=== PATIENT | male | born 1945 | race Two or more races ===

== ENCOUNTER → 2017-02-26 | Outpatient (CLI) | payer MEDICARE, OTHER ==
[2017-02-26 20:14] LABS: URIC ACID 7.4 MG/DL (3.5-7.2)
[2017-02-26 20:19] LABS: MEAN CORPUSCULAR HEMOGLOBIN 31.1 pg (27.0-33.0); MEAN CORPUSCULAR HGB CONC 33.2 g/dl (32.0-36.5); MEAN CORPUSCULAR VOLUME 93.7 fl (80.0-96.0); RED CELL DISTRIBUTION WIDTH 14.2 % (11.5-14.5); WHITE BLOOD COUNT 5.4 K/mm3 (4.0-10.0)
[2017-02-26 20:42] LABS: ERYTHROCYTE SEDIMENTATION RATE 6 mm/hr (0-20)
[2017-02-26 20:59] LABS: BASOPHILS 1 % (0-4); EOSINOPHILS 19 % (0-5)
== END ==
LOC: M WUC 18:02
PROVIDERS: ATTEND Physician Assistant Surgical
DX: M21.611 Bunion of right foot (principal)

== ENCOUNTER 2017-08-22 09:05 | Day surgery (SDC) | payer MEDICARE, OTHER ==
[~2017-08-22 09:05] MED LIST: ACETAMINOPHEN 325 MG TAB PO; PHENYLEPHRINE HCL 10 % OPHTH. SOL 5ML XX; PROPARACAINE 0.5% OPHTH SOL 15ML OS
[2017-08-22] MEDS ORDERED: PHENYLEPHRINE 2.5% OPHTH SOL 2ML As Ordered (09:35)
[2017-08-22] MEDS ORDERED: OFLOXACIN 0.3 % (OCUFLOX) OPTH SOL 5ML As Ordered (09:35)
[2017-08-22] MEDS ORDERED: TROPICAMIDE 1% OPHTH SOLN 2ML As Ordered (09:35)
[2017-08-22] MEDS ORDERED: CYCLOPENTOLATE 2% OPHTH SOLN 2ML BTL As Ordered (09:35)
[2017-08-22] MEDS: PHENYLEPHRINE 2.5% OPHTH SOL 2ML OS (10:04)
[2017-08-22] MEDS: CYCLOPENTOLATE 2% OPHTH SOLN 2ML BTL OS (10:04)
[2017-08-22] MEDS: OFLOXACIN 0.3 % (OCUFLOX) OPTH SOL 5ML OS (10:04)
[2017-08-22] MEDS: LIDOCAINE 3.5 % 1ML OPHTH TOPICAL GEL OU (10:04)
[2017-08-22] MEDS: TROPICAMIDE 1% OPHTH SOLN 2ML OS (10:05)
[2017-08-22] MEDS ORDERED: fentaNYL 100 MCG/2 ML INJECTION (J3010) As Ordered (11:00)
[2017-08-22] MEDS ORDERED: MIDAZOLAM INJ 2 MG/2 ML VIAL (J2250) As Ordered (11:00)
[2017-08-22] MEDS: POVIDONE-IODINE 5% OPHTH PREP SOL 30ML As Ordered (11:05)
[2017-08-22] MEDS: CEFUROXIME 1MG/0.1ML INTRACAMERAL INJ As Ordered (11:05)
[2017-08-22] MEDS: ACETYLCHOLINE OPHTH SOLN 1% 2ML (MIOCHOL-E) As Ordered (11:05)
[2017-08-22] MEDS: LIDOCAINE 1% SDV 5 ML VIAL As Ordered (11:05)
[2017-08-22] MEDS: HEALON DUET (HEALON 10MG/ML 0.55ML & HEALON ENDOCOAT 30MG/ML 0.85ML) As Ordered (11:05)
[2017-08-22] MEDS ORDERED: AcetaZOLAMIDE 500 MG ER CAP As Ordered (11:35)
[2017-08-22] MEDS: KETOROLAC 0.5% OPHTH SOLN OS (11:45)
[2017-08-22] MEDS ORDERED: TRIMETHOBENZAMIDE 300 MG CAP PO (11:45)
[2017-08-22] MEDS ORDERED: ONDANSETRON 4MG/2ML VIAL (J2405) IV (11:45)
[2017-08-22] MEDS: AcetaZOLAMIDE 500 MG ER CAP PO (11:45)
== END 2017-08-22 12:03 | disposition home or self-care (01) ==
LOC: M SDC 09:05
DX: H25.12 Age-related nuclear cataract, left eye (principal); I25.10 Atherosclerotic heart disease of native coronary artery without angina pectoris; I10 Essential (primary) hypertension; E03.9 Hypothyroidism, unspecified; Z79.899 Other long term (current) drug therapy
CPT/HCPCS: 66984

== ENCOUNTER 2017-09-19 10:19 | Day surgery (SDC) | payer MEDICARE, OTHER ==
[2017-09-19] MEDS: CEFUROXIME 1MG/0.1ML INTRACAMERAL INJ As Ordered (07:05)
[~2017-09-19 10:19] MED LIST changes: +CYCLOPENTOLATE 2% OPHTH SOLN 2ML BTL OD; +LIDOCAINE 3.5 % 1ML OPHTH TOPICAL GEL OU; +MIDAZOLAM INJ 2 MG/2 ML VIAL (J2250) As Ordered; +OFLOXACIN 0.3 % (OCUFLOX) OPTH SOL 5ML OD; +PHENYLEPHRINE 2.5% OPHTH SOL 2ML OD; +PHENYLEPHRINE HCL 10 % OPHTH. SOL 5ML OD; -PHENYLEPHRINE HCL 10 % OPHTH. SOL 5ML XX; +PROPARACAINE 0.5% OPHTH SOL 15ML OD; -PROPARACAINE 0.5% OPHTH SOL 15ML OS; +TROPICAMIDE 1% OPHTH SOLN 2ML OD; +fentaNYL 100 MCG/2 ML INJECTION (J3010) As Ordered
[2017-09-19] MEDS ORDERED: CYCLOPENTOLATE 2% OPHTH SOLN 2ML BTL As Ordered (10:30)
[2017-09-19] MEDS ORDERED: TROPICAMIDE 1% OPHTH SOLN 2ML As Ordered (10:30)
[2017-09-19] MEDS ORDERED: OFLOXACIN 0.3 % (OCUFLOX) OPTH SOL 5ML As Ordered (10:30)
[2017-09-19] MEDS ORDERED: PHENYLEPHRINE 2.5% OPHTH SOL 2ML As Ordered (10:30)
[2017-09-19] MEDS: OFLOXACIN 0.3 % (OCUFLOX) OPTH SOL 5ML OD (10:59)
[2017-09-19] MEDS: LIDOCAINE 3.5 % 1ML OPHTH TOPICAL GEL OU (10:59)
[2017-09-19] MEDS: TROPICAMIDE 1% OPHTH SOLN 2ML OD (11:00)
[2017-09-19] MEDS: CYCLOPENTOLATE 2% OPHTH SOLN 2ML BTL OD (11:00)
[2017-09-19] MEDS: PHENYLEPHRINE 2.5% OPHTH SOL 2ML OD (11:00)
[2017-09-19] MEDS ORDERED: TRIMETHOBENZAMIDE 300 MG CAP PO (11:00)
[2017-09-19] MEDS: POVIDONE-IODINE 5% OPHTH PREP SOL 30ML As Ordered (11:44)
[2017-09-19] MEDS: BALANCED SALT IRRIGATION SOLUTION 500ML BAG (FOR OR EYE MACHINE) As Ordered (11:47)
[2017-09-19] MEDS: LIDOCAINE 1% SDV 5 ML VIAL As Ordered (11:47)
[2017-09-19] MEDS: HEALON DUET (HEALON 10MG/ML 0.55ML & HEALON ENDOCOAT 30MG/ML 0.85ML) As Ordered (11:52)
[2017-09-19] MEDS ORDERED: ONDANSETRON 4MG/2ML VIAL (J2405) IV (12:15)
[2017-09-19] MEDS: KETOROLAC 0.5% OPHTH SOLN OD (12:19)
[2017-09-19] MEDS: AcetaZOLAMIDE 500 MG ER CAP PO (12:25)
== END 2017-09-19 12:42 | disposition home or self-care (01) ==
LOC: M SDC 10:19
DX: H25.11 Age-related nuclear cataract, right eye (principal); I11.9 Hypertensive heart disease without heart failure; I25.10 Atherosclerotic heart disease of native coronary artery without angina pectoris; E03.9 Hypothyroidism, unspecified; M54.9 Dorsalgia, unspecified; Z79.899 Other long term (current) drug therapy; Z79.82 Long term (current) use of aspirin
CPT/HCPCS: 66984

== ENCOUNTER 2018-04-11 17:02 | Inpatient (IN) | payer MEDICARE, OTHER ==
[2018-04-11 14:57] LABS: BASO # 0.1 10^3/uL (0.0-0.2); EOS # 1.2 10^3/uL (0.0-0.50); EOS % 17.7 % (0.0-3.0); HEMATOCRIT 51.5 % (42.0-52.0); HEMOGLOBIN 16.6 g/dl (13.5-17.5); IMMATURE GRANULOCYTE % 0.1 % (0-3.0); LYMPH # 1.6 10^3/uL (1.5-4.5); LYMPH % 23.2 % (24.0-44.0); MEAN CORPUSCULAR HEMOGLOBIN 29.6 pg (27.0-33.0); MEAN CORPUSCULAR HGB CONC 32.2 g/dl (32.0-36.5); MEAN CORPUSCULAR VOLUME 91.8 fl (80.0-96.0); MONO # 0.6 10^3/uL (0.0-0.8); MONO % 8.8 % (0.0-5.0); NEUTROPHILS # 3.4 10^3/uL (1.8-7.7); NEUTROPHILS % 49.2 % (36.0-66.0); PLATELET COUNT, AUTOMATED 221 10^3/uL (150-450); RED BLOOD COUNT 5.61 10^6/uL (4.30-6.10); RED CELL DISTRIBUTION WIDTH 15.5 % (11.5-14.5); WHITE BLOOD COUNT 6.8 10^3/uL (4.0-10.0)
[2018-04-11 15:10] LABS: INR 0.99; PROTHROMBIN TIME 13.2 SECONDS (12.1-14.4)
[2018-04-11] MEDS: METOPROLOL TART 25 MG TABLET PO (15:12)
[2018-04-11] MEDS: METOPROLOL 5 MG/5 ML VIAL IV ×3 (15:13→15:35)
[2018-04-11] MEDS: NS 500 ML IV (15:31)
[2018-04-11 15:34] LABS: ALBUMIN 3.8 GM/DL (3.2-5.2); ALBUMIN/GLOBULIN RATIO 1.03 (1.00-1.93); ALKALINE PHOSPHATASE 65 U/L (45-117); ALT/SGPT 30 U/L (12-78); ANION GAP 8 MEQ/L (8-16); AST/SGOT 27 U/L (7-37); BILIRUBIN,DIRECT 0.2 MG/DL (0.0-0.2); BILIRUBIN,TOTAL 0.6 MG/DL (0.2-1.0); BLOOD UREA NITROGEN 18 MG/DL (7-18); CALCIUM LEVEL 9.4 MG/DL (8.8-10.2); CARBON DIOXIDE LEVEL 30 MEQ/L (21-32); CHLORIDE LEVEL 103 MEQ/L (98-107); CPK CREATINE PHOSPHOKINASE 147 U/L (39-308); CREATININE FOR GFR 0.96 MG/DL (0.70-1.30); GLOMERULAR FILTRATION RATE > 60.0 (>42); GLUCOSE, FASTING 100 MG/DL (70-100); LIPASE 101 U/L (73-393); MB/CK RELATIVE INDEX 2.11 (< OR =4); POTASSIUM SERUM 4.8 MEQ/L (3.5-5.1); SODIUM LEVEL 141 MEQ/L (136-145); THYROID STIMULATING HORMONE 0.705 uIU/ML (0.358-3.740); TOTAL PROTEIN 7.5 GM/DL (6.4-8.2); TROPONIN I < 0.02 NG/ML (< 0.10)
[2018-04-11] MEDS: AMIODARONE HCL 150 MG in APPROPRIATE DILUENT 1 EA IV ×2 (17:04→18:21)
[2018-04-11] MEDS: LATANOPROST 0.005% OPHTH SOLN 2.5 ML OS (21:00)
[2018-04-11] MEDS: ASPIRIN 81 MG ENTERIC TAB PO (21:00)
[2018-04-11] MEDS: OMEGA-3 1000MG CAPSULE PO (21:00)
[2018-04-11] MEDS ORDERED: ACETAMINOPH W/CODEINE #3 TAB UD PO (21:00)
[2018-04-11] MEDS ORDERED: PILL CRUSHER/CUTTER 1 EACH XX (21:15)
[2018-04-11] MEDS ORDERED: diltiaZEM 125 MG in NS 100 ML IV (22:00)
[2018-04-11 22:19] LABS: PHOSPHORUS LEVEL 3.2 MG/DL (2.5-4.9)
[2018-04-11] MEDS: diltiaZEM 125 MG in NS 100 ML IV (22:30)
[2018-04-11] MEDS: APIXABAN 5 MG TAB (ELIQUIS) PO (22:40)
[2018-04-12 00:43] LABS: CPK CREATINE PHOSPHOKINASE 81 U/L (39-308); MB/CK RELATIVE INDEX 2.72 (< OR =4); TROPONIN I < 0.02 NG/ML (< 0.10)
[2018-04-12] MEDS: DIGOXIN INJ 0.5 MG/2 ML AMP (J1160) IV (02:56)
[2018-04-12 05:01] LABS: HEMATOCRIT 47.5 % (42.0-52.0); HEMOGLOBIN 15.5 g/dl (13.5-17.5); MEAN CORPUSCULAR HEMOGLOBIN 29.6 pg (27.0-33.0); MEAN CORPUSCULAR HGB CONC 32.6 g/dl (32.0-36.5); MEAN CORPUSCULAR VOLUME 90.6 fl (80.0-96.0); PLATELET COUNT, AUTOMATED 213 10^3/uL (150-450); RED BLOOD COUNT 5.24 10^6/uL (4.30-6.10); RED CELL DISTRIBUTION WIDTH 15.5 % (11.5-14.5); WHITE BLOOD COUNT 7.8 10^3/uL (4.0-10.0)
[2018-04-12 05:29] LABS: ANION GAP 7 MEQ/L (8-16); BLOOD UREA NITROGEN 18 MG/DL (7-18); CALCIUM LEVEL 8.7 MG/DL (8.8-10.2); CARBON DIOXIDE LEVEL 29 MEQ/L (21-32); CHLORIDE LEVEL 106 MEQ/L (98-107); CPK CREATINE PHOSPHOKINASE 83 U/L (39-308); CREATININE FOR GFR 0.89 MG/DL (0.70-1.30); GLOMERULAR FILTRATION RATE > 60.0 (>42); GLUCOSE, FASTING 91 MG/DL (70-100); MAGNESIUM LEVEL 2.3 MG/DL (1.8-2.4); MB/CK RELATIVE INDEX 2.05 (< OR =4); POTASSIUM SERUM 3.9 MEQ/L (3.5-5.1); SODIUM LEVEL 142 MEQ/L (136-145); TROPONIN I < 0.02 NG/ML (< 0.10)
[2018-04-12] MEDS: LEVOTHYROXINE 112MCG TABLET (0.112MG) PO (05:53)
[2018-04-12] MEDS: diltiaZEM 125 MG in NS 100 ML IV (05:55)
[2018-04-12] MEDS: APIXABAN 5 MG TAB (ELIQUIS) PO ×2 (08:14→20:17)
[2018-04-12] MEDS: OMEGA-3 1000MG CAPSULE PO ×2 (08:14→20:17)
[2018-04-12] MEDS: VITAMIN D 1,000 INTERNATIONAL UNITS TABLET PO (08:14)
[2018-04-12] MEDS: ROSUVASTATIN 10 MG TAB (CRESTOR) PO (08:14)
[2018-04-12] MEDS: MULTIVITAMINS/MINERALS THERAP 1 TAB PO (08:14)
[2018-04-12] MEDS: TIMOLOL XE GFS 0.5% OPHTH 5 ML OU (08:15)
[2018-04-12] MEDS: CYANOCOBALAMIN 500 MCG TAB PO (08:15)
[2018-04-12] MEDS: amLODIPine 5 MG TAB PO (08:15)
[2018-04-12] MEDS ORDERED: LIDOCAINE 2% INJ 100 MG/5 ML SDV (FOR ANES.) As Ordered (11:56)
[2018-04-12] MEDS ORDERED: PROPOFOL 200 MG/20 ML VIAL As Ordered (11:56)
[2018-04-12] MEDS ORDERED: ePHEDrine SULFATE 25 MG/5 ML(5MG/ML) SYRINGE (14:17)
[2018-04-12] MEDS: LATANOPROST 0.005% OPHTH SOLN 2.5 ML OS (20:16)
[2018-04-12] MEDS: ASPIRIN 81 MG ENTERIC TAB PO (20:17)
[2018-04-13 05:24] LABS: HEMATOCRIT 44.1 % (42.0-52.0); HEMOGLOBIN 14.1 g/dl (13.5-17.5); MEAN CORPUSCULAR HEMOGLOBIN 29.3 pg (27.0-33.0); MEAN CORPUSCULAR VOLUME 91.5 fl (80.0-96.0); PLATELET COUNT, AUTOMATED 195 10^3/uL (150-450); RED BLOOD COUNT 4.82 10^6/uL (4.30-6.10); RED CELL DISTRIBUTION WIDTH 15.6 % (11.5-14.5); WHITE BLOOD COUNT 6.9 10^3/uL (4.0-10.0)
[2018-04-13] MEDS: LEVOTHYROXINE 112MCG TABLET (0.112MG) PO (05:39)
[2018-04-13 05:46] LABS: ANION GAP 8 MEQ/L (8-16); BLOOD UREA NITROGEN 21 MG/DL (7-18); CALCIUM LEVEL 8.3 MG/DL (8.8-10.2); CARBON DIOXIDE LEVEL 30 MEQ/L (21-32); CHLORIDE LEVEL 105 MEQ/L (98-107); CREATININE FOR GFR 1.14 MG/DL (0.70-1.30); GLOMERULAR FILTRATION RATE > 60.0 (>42); GLUCOSE, FASTING 89 MG/DL (70-100); MAGNESIUM LEVEL 2.1 MG/DL (1.8-2.4); POTASSIUM SERUM 3.6 MEQ/L (3.5-5.1); SODIUM LEVEL 143 MEQ/L (136-145)
[2018-04-13] MEDS: MULTIVITAMINS/MINERALS THERAP 1 TAB PO (08:36)
[2018-04-13] MEDS: CYANOCOBALAMIN 500 MCG TAB PO (08:36)
[2018-04-13] MEDS: APIXABAN 5 MG TAB (ELIQUIS) PO (08:37)
[2018-04-13] MEDS: ROSUVASTATIN 10 MG TAB (CRESTOR) PO (08:37)
[2018-04-13] MEDS: VITAMIN D 1,000 INTERNATIONAL UNITS TABLET PO (08:37)
[2018-04-13] MEDS: OMEGA-3 1000MG CAPSULE PO (08:37)
[2018-04-13] MEDS: amLODIPine 5 MG TAB PO (08:43)
[2018-04-13] MEDS: TIMOLOL XE GFS 0.5% OPHTH 5 ML OU (08:43)
== END 2018-04-13 14:24 | disposition home or self-care (01) | DRG 310 ==
LOC: M ICU 04-12 01:58 → M ED 17:02 → M PCU 04-12 22:27 → M ED INP 23:39
PROC: 5A2204Z Restoration of Cardiac Rhythm, Single (ICD-10-PCS; principal; 2018-04-12 08:02)
DX: I48.0 Paroxysmal atrial fibrillation (principal); I48.92 Unspecified atrial flutter; I25.10 Atherosclerotic heart disease of native coronary artery without angina pectoris; E03.9 Hypothyroidism, unspecified; E78.5 Hyperlipidemia, unspecified; I34.0 Nonrheumatic mitral (valve) insufficiency; I10 Essential (primary) hypertension; Z95.1 Presence of aortocoronary bypass graft; Z79.899 Other long term (current) drug therapy; Z79.82 Long term (current) use of aspirin; Z87.891 Personal history of nicotine dependence; Z88.8 Allergy status to other drugs, medicaments and biological substances; R91.1 Solitary pulmonary nodule; H40.9 Unspecified glaucoma

== ENCOUNTER 2018-06-01 21:38 | Observation (INO) | payer MEDICARE, OTHER ==
[2018-06-01] MEDS ORDERED: METOPROLOL 5 MG/5 ML VIAL As Ordered (22:10)
[2018-06-01] MEDS ORDERED: AMIODARONE HCL 150 MG/100 ML PREMIXED BAG (NEXTERONE) As Ordered (22:10)
[2018-06-01] MEDS: METOPROLOL 5 MG/5 ML VIAL IV ×4 (22:14→22:30)
[2018-06-01 22:15] LABS: BASO # 0.1 10^3/uL (0.0-0.2); BASO % 0.6 % (0.0-1.0); EOS # 1.2 10^3/uL (0.0-0.50); EOS % 15.6 % (0.0-3.0); HEMATOCRIT 49.5 % (42.0-52.0); IMMATURE GRANULOCYTE % 0.1 % (0-3.0); LYMPH # 1.8 10^3/uL (1.5-4.5); LYMPH % 22.2 % (24.0-44.0); MEAN CORPUSCULAR HGB CONC 32.3 g/dl (32.0-36.5); MEAN CORPUSCULAR VOLUME 92.9 fl (80.0-96.0); MONO # 0.8 10^3/uL (0.0-0.8); MONO % 9.6 % (0.0-5.0); NEUTROPHILS # 4.1 10^3/uL (1.8-7.7); NEUTROPHILS % 51.9 % (36.0-66.0); PLATELET COUNT, AUTOMATED 202 10^3/uL (150-450); RED BLOOD COUNT 5.33 10^6/uL (4.30-6.10); RED CELL DISTRIBUTION WIDTH 15.2 % (11.5-14.5); WHITE BLOOD COUNT 7.9 10^3/uL (4.0-10.0)
[2018-06-01] MEDS: AMIODARONE HCL 150 MG in APPROPRIATE DILUENT 1 EA IV ×2 (22:38→23:58)
[2018-06-01 23:09] LABS: INR 1.14; PROTHROMBIN TIME 14.8 SECONDS (12.1-14.4)
[2018-06-01 23:10] LABS: PARTIAL THROMBOPLASTIN TIME 34.9 SECONDS (25.4-37.6)
[2018-06-01] MEDS: METOPROLOL TART 25 MG TABLET PO (23:11)
[2018-06-01 23:32] LABS: ANION GAP 7 MEQ/L (8-16); BLOOD UREA NITROGEN 29 MG/DL (7-18); CALCIUM LEVEL 9.1 MG/DL (8.8-10.2); CARBON DIOXIDE LEVEL 27 MEQ/L (21-32); CHLORIDE LEVEL 104 MEQ/L (98-107); CPK CREATINE PHOSPHOKINASE 187 U/L (39-308); CREATININE FOR GFR 0.99 MG/DL (0.70-1.30); ETHYL ALCOHOL (ETHANOL) < 0.003 % (0.000-0.010); GLOMERULAR FILTRATION RATE > 60.0 (>42); GLUCOSE, FASTING 109 MG/DL (70-100); MB/CK RELATIVE INDEX 1.44 (< OR =4); SODIUM LEVEL 138 MEQ/L (136-145); THYROID STIMULATING HORMONE 0.377 uIU/ML (0.358-3.740); TROPONIN I < 0.02 NG/ML (< 0.10)
[2018-06-02] MEDS ORDERED: LORazepam 2 MG TAB PO (01:30)
[2018-06-02 01:34] LABS: D-DIMER QUANT 731.35 ng/ml (<500)
[2018-06-02] MEDS: ASPIRIN 81 MG CHEW TABLET PO (01:40)
[2018-06-02] MEDS ORDERED: ISOVUE-370 76% 100ML VIAL (Q9967) As Ordered (02:13)
[2018-06-02 02:25] LABS: CPK CREATINE PHOSPHOKINASE 92 U/L (39-308); MB/CK RELATIVE INDEX 2.39 (< OR =4); TROPONIN I < 0.02 NG/ML (< 0.10)
[2018-06-02] MEDS ORDERED: LORazepam 1 MG TAB PO (03:03)
[2018-06-02] MEDS: NS 1,000 ML IV (03:15)
[2018-06-02 05:00] LABS: HEMATOCRIT 42.6 % (42.0-52.0); MEAN CORPUSCULAR HEMOGLOBIN 29.8 pg (27.0-33.0); MEAN CORPUSCULAR HGB CONC 32.4 g/dl (32.0-36.5); PLATELET COUNT, AUTOMATED 173 10^3/uL (150-450); RED BLOOD COUNT 4.63 10^6/uL (4.30-6.10); RED CELL DISTRIBUTION WIDTH 15.4 % (11.5-14.5); WHITE BLOOD COUNT 6.4 10^3/uL (4.0-10.0)
[2018-06-02 05:11] LABS: ANION GAP 5 MEQ/L (8-16); BLOOD UREA NITROGEN 26 MG/DL (7-18); CALCIUM LEVEL 8.3 MG/DL (8.8-10.2); CARBON DIOXIDE LEVEL 30 MEQ/L (21-32); CHLORIDE LEVEL 106 MEQ/L (98-107); CREATININE FOR GFR 1.01 MG/DL (0.70-1.30); GLOMERULAR FILTRATION RATE > 60.0 (>42); GLUCOSE, FASTING 94 MG/DL (70-100); MAGNESIUM LEVEL 2.3 MG/DL (1.8-2.4); SODIUM LEVEL 141 MEQ/L (136-145)
[2018-06-02 05:14] LABS: HEMOGLOBIN 13.8 g/dl (13.5-17.5)
[2018-06-02] MEDS: THIAMINE 100 MG TAB PO (05:32)
[2018-06-02] MEDS: LEVOTHYROXINE 125MCG TABLET (0.125MG) PO (05:32)
[2018-06-02] MEDS: TIMOLOL XE GFS 0.5% OPHTH 5 ML OU (05:32)
[2018-06-02] MEDS: ROSUVASTATIN 10 MG TAB (CRESTOR) PO (08:51)
[2018-06-02] MEDS: APIXABAN 5 MG TAB (ELIQUIS) PO (08:51)
[2018-06-02] MEDS: AMIODARONE 200 MG TAB (PACERONE) PO (08:51)
[2018-06-02] MEDS ORDERED: MULTIVITAMINS/MINERALS THERAP 1 TAB PO (09:00)
[2018-06-02] MEDS ORDERED: TIMOLOL XE GFS 0.5% OPHTH 5 ML OU (09:00)
[2018-06-02] MEDS ORDERED: FOLIC ACID 1 MG TAB PO (09:00)
[2018-06-02 10:07] LABS: CPK CREATINE PHOSPHOKINASE 67 U/L (39-308); MB/CK RELATIVE INDEX 2.54 (< OR =4); TROPONIN I < 0.02 NG/ML (< 0.10)
[2018-06-02] MEDS ORDERED: LATANOPROST 0.005% OPHTH SOLN 2.5 ML OS (18:00)
== END 2018-06-02 12:19 | disposition home or self-care (01) ==
LOC: M ED INP 21:39 → M ICU 06-02 03:00 → M ED 21:38
DX: I48.0 Paroxysmal atrial fibrillation (principal); I25.10 Atherosclerotic heart disease of native coronary artery without angina pectoris; Z95.1 Presence of aortocoronary bypass graft; E03.9 Hypothyroidism, unspecified; I34.0 Nonrheumatic mitral (valve) insufficiency; I10 Essential (primary) hypertension; E78.5 Hyperlipidemia, unspecified; Z79.899 Other long term (current) drug therapy; Z79.01 Long term (current) use of anticoagulants
CPT/HCPCS: Q9967

== ENCOUNTER → 2018-07-18 | Outpatient (CLI) | payer MEDICARE, OTHER ==
[~2018-07-18] MED LIST changes: +ACET1TAB16 PO; -ACETAMINOPHEN 325 MG TAB PO; +AMIO200T PO; +AMLO5TAB6 PO; +ASPI81TA85 PO; +CALC500T24 PO; +CO Q10CA PO; -CYCLOPENTOLATE 2% OPHTH SOLN 2ML BTL OD; +D 101TAB PO; +D 10TAB2 PO; +ELIQ5TAB PO; +FISH1CAP37 PO; +FLAX10008 PO; +LATA5OPD OS; +LECI1200 PO; -LIDOCAINE 3.5 % 1ML OPHTH TOPICAL GEL OU; -MIDAZOLAM INJ 2 MG/2 ML VIAL (J2250) As Ordered; +MULTTAB22 PO; -OFLOXACIN 0.3 % (OCUFLOX) OPTH SOL 5ML OD; -PHENYLEPHRINE 2.5% OPHTH SOL 2ML OD; -PHENYLEPHRINE HCL 10 % OPHTH. SOL 5ML OD; -PROPARACAINE 0.5% OPHTH SOL 15ML OD; +ROSU5TAB4 PO; +SYNT112T2 PO; +SYNT125T PO; +TIMO0.5S3 OU; +TIMO0.5S39 OU; -TROPICAMIDE 1% OPHTH SOLN 2ML OD; +VITA100072 PO; +XALA0.007 OS; +[UNRECOGNIZED DRUG - CODE] PO; -fentaNYL 100 MCG/2 ML INJECTION (J3010) As Ordered
--- NOTE | 2018-07-18 12:35 | REP ---
CT chest without contrast: History: Abnormal lung field findings. Comparison chest CT study June 05, 2018 and April 11, 2018. 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 There is a large new rounded opacity in the left lower lobe consistent with rounded atelectasis. This is unchanged from the April 11, 2018 study and measures up to 4.3 cm in diameter. There is adjacent fibrosis and retraction. There are scattered areas of pleural thickening in the left chest also again noted. No pleural calcification is seen. There is a smaller area of rounded atelectasis in the lingula versus pleural thickening with adjacent fibrosis. This is also unchanged from April 11, 2018. There is a stable 5 mm nodule in the right lower lobe posteriorly on today's study page 63 of 117 series 201. This is unchanged from April 2018. There is a nodular opacity anteriorly in the minor fissure on the right but this is seen to be due to a pulmonary venous vessel coursing adjacent to the fissure. No other significant pulmonary nodule is appreciated. No bony abnormality is seen. There are old healed rib fractures bilaterally. Scattered mediastinal lymph nodes are again seen unchanged. The largest of these is in the AP window region measuring 12 x 18 mm. Impression: Large area of rounded atelectasis in the left lower lobe, possible smaller area in the left upper lobe and nodular opacities all unchanged from April 11, 2018 prior study. Continued followup is advised. Stable mediastinal scattered lymph nodes. Electronically Signed by Magdiel Pearce MD 07/18/2018 04:23 P
== END ==
LOC: M RAD 10:53
PROVIDERS: ATTEND Internal Medicine Pulmonary Disease
DX: J98.11 Atelectasis (principal); R91.8 Other nonspecific abnormal finding of lung field

== ENCOUNTER → 2018-08-27 | Outpatient (REF) | payer MEDICARE, OTHER ==
[2018-08-27 20:07] LABS: APPEARANCE, URINE CLEAR (CLEAR); BACTERIA, URINE AUTO NEGATIVE (NEGATIVE); BILIRUBIN, URINE AUTO NEGATIVE (NEGATIVE); BLOOD, URINE BLOOD NEGATIVE (NEGATIVE); COLOR, URINE YELLOW (YELLOW); GLUCOSE, URINE (UA) AUTO NEGATIVE (NEGATIVE); KETONE, URINE AUTO NEGATIVE (NEGATIVE); LEUKOCYTE ESTERASE, URINE AUTO NEGATIVE (NEGATIVE); MUCUS, URINE SMALL (NEGATIVE); NITRITE, URINE AUTO NEGATIVE (NEGATIVE); PROTEIN, URINE AUTO NEGATIVE (NEGATIVE); RBC, URINE AUTO 0 /HPF (0-3); SPECIFIC GRAVITY URINE AUTO 1.017 (1.002-1.035); SQUAMOUS EPITHELIAL CELL UR AU 0 /HPF (0-6); UROBILINOGEN, URINE AUTO 0.2 mg/dL (0.0-2.0); WBC, URINE AUTO 3 /HPF (0-3)
== END ==
LOC: M LAB REF 17:26
PROVIDERS: ATTEND Nurse Practitioner Adult Health
DX: R35.0 Frequency of micturition (principal)

== ENCOUNTER 2018-11-27 11:21 | Emergency (ER) | payer MEDICARE, OTHER ==
[~2018-11-27] VITALS: Ht 177.8 cm; Wt 71.8 kg
[~2018-11-27 11:21] MED LIST changes: -D 101TAB PO; +LATA0.0013 OS; -LATA5OPD OS; +VITA-144 PO; +VITA100018 PO; -VITA100072 PO
[2018-11-27] MEDS ORDERED: AMIO0.1T PO (11:32)
[2018-11-27] MEDS ORDERED: LIDOCAINE 2% 5ML JELLY UROJET TOP ONE (12:15)
[2018-11-27] MEDS ORDERED: BACT800T5 PO (13:28)
[2018-11-27] MEDS ORDERED: FLOM0.4C39 PO (13:28)
[2018-11-27 14:18] VITALS: BP 128/67
== END 2018-11-27 14:19 | disposition home or self-care (01) ==
LOC: M ED 11:21
DX: R33.0 Drug induced retention of urine (principal); N39.0 Urinary tract infection, site not specified; I10 Essential (primary) hypertension; I48.91 Unspecified atrial fibrillation; E03.9 Hypothyroidism, unspecified; E78.5 Hyperlipidemia, unspecified; Z88.8 Allergy status to other drugs, medicaments and biological substances; Z79.01 Long term (current) use of anticoagulants

== ENCOUNTER → 2018-12-20 | Outpatient (REF) | payer MEDICARE, OTHER ==
[~2018-12-20] MED LIST changes: +AMIO0.1T PO; +BACT800T5 PO; +FLOM0.4C39 PO
[2018-12-20 14:03] LABS: APPEARANCE, URINE HAZY (CLEAR); BACTERIA, URINE AUTO NEGATIVE (NEGATIVE); BILIRUBIN, URINE AUTO NEGATIVE (NEGATIVE); BLOOD, URINE BLOOD NEGATIVE (NEGATIVE); COLOR, URINE YELLOW (YELLOW); GLUCOSE, URINE (UA) AUTO NEGATIVE (NEGATIVE); KETONE, URINE AUTO TRACE mg/dL (NEGATIVE); LEUKOCYTE ESTERASE, URINE AUTO NEGATIVE (NEGATIVE); NITRITE, URINE AUTO NEGATIVE (NEGATIVE); PROTEIN, URINE AUTO NEGATIVE (NEGATIVE); RBC, URINE AUTO 2 /HPF (0-3); SPECIFIC GRAVITY URINE AUTO 1.018 (1.002-1.035); SQUAMOUS EPITHELIAL CELL UR AU 0 /HPF (0-6); UROBILINOGEN, URINE AUTO 0.2 mg/dL (0.0-2.0); WBC, URINE AUTO 0 /HPF (0-3)
== END ==
LOC: M SMT 12:50
PROVIDERS: ATTEND Nurse Practitioner Family
DX: R31.29 Other microscopic hematuria (principal)
CPT/HCPCS: 51798; 81001; 87086; G0463

== ENCOUNTER → 2019-01-14 | Outpatient (CLI) | payer MEDICARE, OTHER ==
[~2019-01-14] MED LIST changes: -ROSU5TAB4 PO; +ROSU5TAB5 PO
--- NOTE | 2019-01-14 18:55 | REP ---
CT chest without contrast: History: Abnormal finding in the lung pan. [place] chest CT studies are reviewed from April 11, 2018, June 02, 2018, and July 18, 2018. CT findings: There is a fairly large stable opacity in the left lower lobe posteriorly with morphologic features suggestive of spiral or rounded atelectasis. This measures 4.4 cm in greatest transverse dimension today, previously 4.7 cm in May of 2018 and 4.3 cm in July of 2018. There is a similar smaller area of rounded atelectasis in the lingular segment of the left upper lobe anterolaterally. This is unchanged as well. There is a stable 5 mm noncalcified pulmonary nodule in the right lower lobe on page 64 of 120 in series 201 of today's study. This is unchanged from June 02, 2018. No new pulmonary nodule is appreciated. Median sternotomy wires are noted. The patient has vascular calcification. Scattered stable mediastinal lymph nodes are observed. These are unchanged from the April 27, 2018 prior study. No other abnormalities seen. Visualized upper abdominal structures are unremarkable. There is evidence of a calcified gallstone, unchanged. Impression: Stable intrathoracic findings. Stability documented since April 11, 2018. Electronically Signed by Magdiel Pearce MD 01/14/2019 07:31 P
== END ==
LOC: M RAD 12:54
PROVIDERS: ATTEND Internal Medicine Pulmonary Disease
DX: R91.8 Other nonspecific abnormal finding of lung field (principal)

== ENCOUNTER 2019-02-07 06:26 | Emergency (ER) | payer MEDICARE, OTHER ==
[~2019-02-07] VITALS: Ht 180.3 cm; Wt 70.0 kg
[2019-02-07 06:49] LABS: BASO # 0.1 10^3/uL (0.0-0.2); BASO % 1.3 % (0.0-1.0); EOS % 16.7 % (0.0-3.0); HEMATOCRIT 48.7 % (42.0-52.0); HEMOGLOBIN 15.9 g/dl (13.5-17.5); LYMPH # 1.8 10^3/uL (1.5-4.5); LYMPH % 28.1 % (24.0-44.0); MEAN CORPUSCULAR HEMOGLOBIN 30.5 pg (27.0-33.0); MEAN CORPUSCULAR HGB CONC 32.6 g/dl (32.0-36.5); MEAN CORPUSCULAR VOLUME 93.5 fl (80.0-96.0); MONO # 0.7 10^3/uL (0.0-0.8); MONO % 11.1 % (0.0-5.0); NEUTROPHILS # 2.7 10^3/uL (1.8-7.7); NEUTROPHILS % 42.5 % (36.0-66.0); PLATELET COUNT, AUTOMATED 214 10^3/uL (150-450); RED BLOOD COUNT 5.21 10^6/uL (4.30-6.10); WHITE BLOOD COUNT 6.2 10^3/uL (4.0-10.0)
[2019-02-07 07:20] LABS: BLOOD UREA NITROGEN 16 MG/DL (7-18); CALCIUM LEVEL 9.2 MG/DL (8.8-10.2); CARBON DIOXIDE LEVEL 27 MEQ/L (21-32); CHLORIDE LEVEL 105 MEQ/L (98-107); CPK CREATINE PHOSPHOKINASE 112 U/L (39-308); CREATININE FOR GFR 0.96 MG/DL (0.70-1.30); GLOMERULAR FILTRATION RATE > 60.0 (>42); GLUCOSE, FASTING 93 MG/DL (70-100); MAGNESIUM LEVEL 2.6 MG/DL (1.8-2.4); MB/CK RELATIVE INDEX 1.79 (< OR =4); SODIUM LEVEL 141 MEQ/L (136-145); TROPONIN I < 0.02 NG/ML (< 0.10)
[2019-02-07] MEDS ORDERED: AMIODARONE HCL 150 MG in APPROPRIATE DILUENT 1 EA IV STA (07:43)
--- NOTE | 2019-02-07 08:01 | REP ---
Clinical: Acute chest pain . Comparison: 06/01/2018 . Findings: The mediastinum and cardiac silhouette are stable and within normal limits for portable technique. Evidence of prior sternotomy and CABG. The lung pan are clear without acute consolidation, effusion, or pneumothorax. Skeletal structures are intact. Impression: No acute cardiopulmonary process appreciated. Electronically Signed by Dougie Spear MD 02/07/2019 07:53 A
[2019-02-07 08:05] LABS: T UPTAKE 41 % (33-40); THYROXINE (T4) 12.3 UG/DL (4.5-12.0)
[2019-02-07 09:15] VITALS: BP 135/81
--- NOTE | 2019-02-07 22:24 | ECGEPIP ---
[facility] - ED Test Date: 2019-02-07 Pat Name: MATT RUSHING Department: Room: - Gender: Male Senior Officer: KCJ : 1945 Requested By: PASCUAL Joshi Order Number: [id number] Reading MD: Niranjan Vick Measurements Intervals [place] Rate: 123 P: [place]: 0 QRS: 16 QRSD: 105 T: 64 QT: 310 QTc: 444 Interpretive Statements SINUS TACHYCARDIA WITH OCCASIONAL SUPRAVENTRICULAR PREMATURE COMPLEXES LVH BY VOLTAGE CRITERIA NONSPECIFIC ST & T-WAVE ABNORMALITY RATE CHANGE COMPARED TO 06/02/18 Electronically Signed on 02-07-2019 22:24:23 EDT by Niranjan Vick
--- NOTE | 2019-02-07 22:26 | ECGEPIP ---
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
== END 2019-02-07 09:41 | disposition home or self-care (01) ==
LOC: M ED 06:26
DX: I48.91 Unspecified atrial fibrillation (principal); I10 Essential (primary) hypertension; E78.5 Hyperlipidemia, unspecified; Z87.891 Personal history of nicotine dependence; Z98.890 Other specified postprocedural states; Z95.1 Presence of aortocoronary bypass graft; Z88.8 Allergy status to other drugs, medicaments and biological substances; Z79.899 Other long term (current) drug therapy; Z79.01 Long term (current) use of anticoagulants

== ENCOUNTER 2019-02-09 12:14 | Inpatient (IN) | payer MEDICARE, OTHER ==
[~2019-02-09] VITALS: Ht 177.8 cm; Wt 72.1 kg
[2019-02-09] MEDS ORDERED: AMIODARONE HCL 150 MG in APPROPRIATE DILUENT 1 EA IV STA ×2 (12:38→14:02)
[2019-02-09 12:39] LABS: BASO # 0.1 10^3/uL (0.0-0.2); BASO % 1.4 % (0.0-1.0); EOS % 17.2 % (0.0-3.0); HEMATOCRIT 50.3 % (42.0-52.0); HEMOGLOBIN 16.4 g/dl (13.5-17.5); LYMPH # 1.5 10^3/uL (1.5-4.5); LYMPH % 26.4 % (24.0-44.0); MEAN CORPUSCULAR HEMOGLOBIN 30.9 pg (27.0-33.0); MEAN CORPUSCULAR HGB CONC 32.6 g/dl (32.0-36.5); MEAN CORPUSCULAR VOLUME 94.9 fl (80.0-96.0); MONO # 0.6 10^3/uL (0.0-0.8); MONO % 10.4 % (0.0-5.0); NEUTROPHILS # 2.5 10^3/uL (1.8-7.7); NEUTROPHILS % 44.3 % (36.0-66.0); PLATELET COUNT, AUTOMATED 229 10^3/uL (150-450); WHITE BLOOD COUNT 5.8 10^3/uL (4.0-10.0)
--- NOTE | 2019-02-09 12:51 | REP ---
Clinical: Acute chest pain . Comparison: 02/07/2019 . Findings: The mediastinum and cardiac silhouette are stable. Evidence of prior sternotomy and CABG again noted. The lung pan demonstrate chronic stable changes without acute consolidation, effusion, or pneumothorax. Skeletal structures are intact. Impression: No acute cardiopulmonary process appreciated. Electronically Signed by Dougie Spear MD 02/09/2019 12:41 P
[2019-02-09 13:13] LABS: INR 1.23; PROTHROMBIN TIME 15.2 SECONDS (11.8-14.0)
[2019-02-09 13:14] LABS: PARTIAL THROMBOPLASTIN TIME 40.1 SECONDS (25.0-38.4)
[2019-02-09 13:16] LABS: D-DIMER QUANT 1155.88 ng/ml (<500)
[2019-02-09 13:51] LABS: ALBUMIN 3.5 GM/DL (3.2-5.2); ALT/SGPT 24 U/L (12-78); BILIRUBIN,DIRECT 0.2 MG/DL (0.0-0.2); BILIRUBIN,TOTAL 0.5 MG/DL (0.2-1.0); BLOOD UREA NITROGEN 14 MG/DL (7-18); CARBON DIOXIDE LEVEL 29 MEQ/L (21-32); CHLORIDE LEVEL 105 MEQ/L (98-107); CK-MB VALUE MASS 1.9 NG/ML (<3.6); CPK CREATINE PHOSPHOKINASE 86 U/L (39-308); FREE T4 1.54 NG/DL (0.76-1.46); GLOMERULAR FILTRATION RATE > 60.0 (>42); GLUCOSE, FASTING 137 MG/DL (70-100); MAGNESIUM LEVEL 2.4 MG/DL (1.8-2.4); MB/CK RELATIVE INDEX 2.21 (< OR =4); PHOSPHORUS LEVEL 2.9 MG/DL (2.5-4.9); POTASSIUM SERUM 3.8 MEQ/L (3.5-5.1); SODIUM LEVEL 142 MEQ/L (136-145); TOTAL PROTEIN 6.6 GM/DL (6.4-8.2); TROPONIN I < 0.02 NG/ML (< 0.10)
[2019-02-09] MEDS ORDERED: DIGOXIN INJ 0.5 MG/2 ML AMP (J1160) IV STA ×2 (14:02→18:11)
[2019-02-09] MEDS ORDERED: ISOVUE-370 76% 100ML VIAL (Q9967) As Ordered ONE (14:57)
--- NOTE | 2019-02-09 15:43 | ECGEPIP ---
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
--- NOTE | 2019-02-09 15:45 | ECGEPIP ---
[facility] - ED Test Date: 2019-02-09 Pat Name: MATT RUSHING Department: Room: - Gender: Male Manager Diversity: karine : 1945 Requested By: BEATRIZ Morgan Order Number: [id number] Reading MD: Estefania Kim Measurements Intervals [place] Rate: 62 P: 88 MD: 180 QRS: 7 QRSD: 101 T: 73 QT: 398 QTc: 407 Interpretive Statements SINUS RHYTHM MODERATE ST DEPRESSION ST ELEVATION INFERIOR LEADS SEEN PRIOR NSR IMMEDIATELY PRIOR EKG ATRIAL FIBRILLATION Electronically Signed on 02-09-2019 15:45:02 EDT by Estefania Kim
--- NOTE | 2019-02-09 16:19 | REP ---
Clinical: Acute chest pain and shortness of breath. Technique: Axial contrast enhanced images from the thoracic inlet to the upper abdomen with coronal and sagittal re-formations using 100 ml Isovue 370 intravenous contrast material. Comparison: 01/14/2019, 04/11/2018 . Findings: Maximal enhancement of the pulmonary vasculature is achieved and no filling defects are identified to suggest pulmonary embolus. Atherosclerotic changes to the thoracic aorta and coronary arteries noted without aortic aneurysm or dissection. Mild cardiomegaly is suggested without pericardial effusion. Evidence for prior sternotomy and CABG. Lung pan demonstrate chronic rounded atelectasis in the left lower lobe along with trace scarring at the lingula and minimal right basilar atelectasis/dependent change. No significant focal consolidation. No effusion. No pneumothorax. Tracheobronchial tree is relatively patent. Mediastinal lymph nodes are stable and likely reactive measuring up to 1.9 cm in the prevascular space. Musculoskeletal structures demonstrate degenerative changes without focal osseous abnormality. Impression: 1. No evidence for pulmonary embolus. 2. Chronic rounded atelectasis in the left lower lobe along with minimal chronic changes at the lingula and right base. Minimal amount of right lower lobe dependent change/atelectasis. 3. Chronic atherosclerotic disease along with cardiomegaly and evidence of prior CABG. Electronically Signed by Dougie Spear MD 02/09/2019 04:09 P
[2019-02-09] MEDS ORDERED: AMIODARONE 200 MG TAB (PACERONE) PO ONE (18:15)
--- NOTE | 2019-02-09 18:17 | ECGEPIP ---
[facility] - ED Test Date: 2019-02-09 Pat Name: MATT RUSHING Department: Room: - Gender: Male Manager [place]: karine : 1945 Requested By: BEATRIZ Morgan Order Number: [id number] Reading MD: Estefania Kim Measurements Intervals [place] Rate: 135 P: [place]: 0 QRS: 19 QRSD: 100 T: 71 QT: 300 QTc: 450 Interpretive Statements ATRIAL FIBRILLATION WITH RAPID VENTRICULAR RESPONSE NONSPECIFIC ST & T-WAVE ABNORMALITY ABNORMAL RHYTHM ECG PRIOR SINUS RHYTHM 02/09/19 14:42 Electronically Signed on 02-09-2019 18:17:23 EDT by Estefania Kim
[2019-02-09 18:53] LABS: CK-MB VALUE MASS 1.7 NG/ML (<3.6); CPK CREATINE PHOSPHOKINASE 76 U/L (39-308); MB/CK RELATIVE INDEX 2.24 (< OR =4); TROPONIN I < 0.02 NG/ML (< 0.10)
[2019-02-09] MEDS ORDERED: CETI-14 PO (20:14)
[2019-02-09] MEDS ORDERED: CALCTAB15 PO (20:14)
[2019-02-09] MEDS ORDERED: OMEG10002 PO (20:14)
[2019-02-09] MEDS ORDERED: LECI1CAP2 PO (20:14)
[2019-02-09] MEDS ORDERED: FLOM0.4C39 PO (20:14)
[2019-02-09] MEDS ORDERED: MAALOX 30 ML SUSP *UDC PO PRN (21:00)
--- NOTE | 2019-02-09 21:25 | HPEPDOC ---
General Date of Admission 02/09/19 Date of Service: Feb 09, 2019 Chief Complaint The patient is a 73-year-old male admitted with a reason for visit of AFIB. Source: Patient, Family, RN/MD, Old records Exam Limitations: No limitations Severity: Severe Associated Symptoms: Cough, Dizziness, Other (palpitation) History of Present Illness 73 year old male with PMH of paroxysmal atrial fibrillation because of pa lpitation which started at 11 am today. He had been in the ED for the same complaint and was in Afib with RVR at that vist he converted to sinus after management in ED so went home. Yesterday he had any episode of dizziness and today around 11 am his palpitation restarted with light headed ness of and on. He has been battling with a bad cough for the past 2 weeks. He was diagnosed with bronchitis in the middle of January and received a course of amoxicillin and prednisone. his cough is better but still there. It is dry with no phlegm production and comes in bouts. He dinied any fever or chills or any SOB or chest pain. In ED he was again in Afib with RVR. he was not given betablocker as he had a bad reaction to it before when his heart rate had really dangerously bradyed down. He was given 2 doses of amiodarone 150 mg, 2 doses of digoxin 0.25 mg. He had briefly converted to sinus but then went back to afib again and continued to be in A fib with RVR with rates i 140s to 160s so he is being admitted to the hospital. The management was discussed with Dr Freeman by Dr Hatfield in ED . I will continue to follow his advice of amiodarone and further digoxin loading. Home Medications Scheduled Amiodarone HCl (Amiodarone HCl) 100 Mg Tablet, 100 TAB PO DAILY, (Reported) Amlodipine Besylate (Amlodipine Besylate) 5 Mg Tab, 5 MG PO DAILY, (Reported) Apixaban (Eliquis) 5 Mg Tab, 5 MG PO BID, (Reported) Calcium/Magnesium (Calcium with Magnesium Tab) 1 Each Tablet, 1 EACH PO DAILY, (Reported) Cetirizine HCl (Cetirizine HCl) 10 Mg Tablet, 10 MG PO QAM, (Reported) Cholecalciferol (Vitamin D3) (Vitamin D3) 1,000 Unit Tab, 1,000 UNIT PO DAILY, (Reported) Cyanocobalamin (Vitamin B-12) (Vitamin B-12) 1,000 Mcg Tab, 1,000 MCG PO DAILY, (Reported) Flaxseed Oil (Flaxseed Oil) 1,000 Mg Cap, 1,000 MG PO DAILY, (Reported) Latanoprost (Xalatan) 0.005 % Margarita, 1 DROP OS QHS, (Reported) Lecithin, Soy (Lecithin) 1,200 Mg Capsule, 1,200 MG PO BID, (Reported) Levothyroxine Sodium (Synthroid) 125 Mcg Tab, 125 MCG PO QAM, (Reported) Multivit-Min/FA/Lycopen/Lutein (Essential Man Tablet) 1 Tab Tab, 1 TAB PO DAILY, (Reported) [place]-3/Dha/Epa/Fish Oil (Fish Oil 1,000 mg Softgel) 1 Each Capsule, 1,000 MG PO DAILY, (Reported) Rosuvastatin Calcium (Rosuvastatin Calcium) 5 Mg Tab, 5 MG PO QPM, (Reported) Tamsulosin HCl (Flomax) 0.4 Mg Capsule, 0.4 MG PO DAILY, (Reported) Timolol Maleate (Timoptic-Xe) 0.5 % Margarita, 1 DROP OU DAILY, (Reported) Ubidecarenone (Co Q-10) 10 Mg Cap, 10 MG PO DAILY, (Reported) Scheduled PRN Acetaminophen with Codeine (Acetaminophen-Cod #3 Tablet) 1 Tab Tab, 0.5 TAB PO BID PRN for PAIN, (Reported) Allergies Coded Allergies: amiodarone (Verified Allergy, Mild, ITCHING (WITH HIGHER DOSES), 02/09/19) PT TAKES ZYRTEC TO COMBAT ITCHING, SAYS IT SEEMS TO HELP simvastatin (Verified Allergy, Unknown, UNKNOWN, 02/09/19) Past Medical History Medical History Paroxysmal atrial fibrillation s/p dc conversion in May 2018 and s/p ablation in November 2018 Paroxysmal atrial flutter. Coronary artery disease with coronary artery bypass graft (CABG) times three. Hypothyroidism. Mitral insufficiency. Hypertension. Hyperlipidemia. 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 Surgical History Cardiac ablation in November 2018 Cardioversion in 2018 Triple bypass in 2007. Bone spur. Toe surgery. Cataract repair. Tonsillectomy with adenoidectomy 1949. Hernia 1975. Cervical spine laminectomy from C3-7 1998. Brown-Sequard syndrome 1998. Family History FATHER: MOTHER: , RHEUMATIC FEVER THAT CAUSED HEART PROBLEMS SIBLINGS: ALIVE 2 SISTER(S) . 3 SON(S) , 1 DAUGHTER(S) - HEALTHY. DENIES FAMILY HISTORY OF UROLOGICAL DX. Social History * Smoker: quit greater than 1 year Alcohol: other (daily 1 -2 glasses of wine) Drugs: denies A-FIB/CHADSVASC A-FIB History Current/History of A-Fib/PAF?: Yes Current PO Anticoag Therapy: Yes Review of Systems Constitutional: Denies: Chills, Fever, Night Sweats Eyes: Denies: Pain, Vision change ENT: Denies: Head Aches, Ear Pain, Dysphagia Skin: Denies: Rash, Lesions, Breakdown Pulmonary: Reports: Cough Cardiovascular: Reports: Palpitations, Lt Headedness Gastrointestinal: Denies: Nausea, Vomiting, Abdominal Pain, Diarrhea Genitourinary: Reports: Frequency; Denies: Dysuria, Incontinence, Hematuria, Retention Hematologic: Denies: Bruising, Bleeding Excessively Musculoskeletal: Denies: Neck Pain, Back Pain, Joint Pain, Muscle Pain, Spasms Neurological: Reports: Other Symptoms (numbness on the right side of the bodyfrom belw the right arm pit to the leg) Physical Examination General Exam: Positive: Alert, Cooperative, No Acute Distress Eye Exam: Positive: PERRLA, Conjunctiva & lids normal, EOMI; Negative: Sclera icteric ENT Exam: Positive: Atraumatic, Mucous membr. moist/pink, Pharynx Normal Neck Exam: Positive: Supple; Negative: JVD, thyromegaly Chest Exam: Positive: Clear to auscultation, Normal air movement Heart Exam: Positive: Tachycardic, Irregular Rhythm, Normal S1, Normal S2; Negative: Gallops, Murmurs, Rubs Telemetry: Positive: Atrial fibrillation Abdomen Exam: Positive: Normal bowel sounds, Soft; Negative: Tenderness, Hepatospenomegaly Extremity Exam: Negative: Clubbing, Cyanosis, Edema Skin Exam: Positive: Nl turgor and temperature; Negative: Breakdown, Lesion Vital Signs Vital Signs Date Time Temp Pulse Resp B/P (MAP) Pulse Ox O2 Delivery O2 Flow Rate FiO2 02/09/19 20:01 149 129/82 (98) 94 02/09/19 12:48 18 Room Air 02/09/19 12:30 96.8 Laboratory Data Labs 24H Laboratory Tests 2 02/09/19 12:29: Immature Granulocyte % (Auto) 0.3, White Blood Count 5.8, Red Blood Count 5.30, Hemoglobin 16.4, Hematocrit 50.3, Mean Corpuscular Volume 94.9, Mean Corpuscular Hemoglobin 30.9, Mean Corpuscular Hemoglobin Concent 32.6, Red Cell Distribution Width 15.2H, Platelet Count 229, Neutrophils (%) (Auto) 44.3, Lymphocytes (%) (Auto) 26.4, Monocytes (%) (Auto) 10.4H, Eosinophils (%) (Auto) 17.2H, Basophils (%) (Auto) 1.4H, Neutrophils # (Auto) 2.5, Lymphocytes # (Auto) 1.5, Monocytes # (Auto) 0.6, Eosinophils # (Auto) 1.0H, Basophils # (Auto) 0.1, Nucleated Red Blood Cells % (auto) 0.0 02/09/19 12:58: Prothrombin Time 15.2H, Prothromb Time International Ratio 1.23, Activated Parti al Thromboplast Time 40.1H, D-Dimer, Quantitative 1155.88H, Anion Gap 8, Glomerular Filtration Rate > 60.0, Blood Urea Nitrogen 14, Creatinine 0.80, Sodium Level 142, Potassium Level 3.8, Chloride Level 105, Carbon Dioxide Level 29, Calcium Level 9.0, Phosphorus Level 2.9, Aspartate Amino Transf (AST/SGOT) 23, Alanine Aminotransferase (ALT/SGPT) 24, Total Creatine Kinase 86, Alkaline Phosphatase 62, Total Bilirubin 0.5, Direct Bilirubin 0.2, Total Protein 6.6, Albumin 3.5, Magnesium Level 2.4, Creatine Kinase MB 1.9, Creatine Kinase MB Relative Index 2.21, Troponin I < 0.02, Albumin/Globulin Ratio 1.13, Thyroid Stimulating Hormone (TSH) 2.260, Free Thyroxine 1.54H 02/09/19 18:11: Total Creatine Kinase 76, Creatine Kinase MB 1.7, Creatine Kinase MB Relative Index 2.24, Troponin I < 0.02 CBC/BMP Laboratory Tests 02/09/19 12:29 Red Blood Count 5.30, Mean Corpuscular Volume 94.9, Mean Corpuscular Hemoglobin 30.9, Mean Corpuscular Hemoglobin Concent 32.6, Red Cell Distribution Width 15.2 H, Neutrophils (%) (Auto) 44.3, Lymphocytes (%) (Auto) 26.4, Monocytes (%) (Auto) 10.4 H, Eosinophils (%) (Auto) 17.2 H, Basophils (%) (Auto) 1.4 H, Neutrophils # (Auto) 2.5, Lymphocytes # (Auto) 1.5, Monocytes # (Auto) 0.6, Eosinophils # (Auto) 1.0 H, Basophils # (Auto) 0.1 02/09/19 12:58 Calcium Level 9.0, Phosphorus Level 2.9, Aspartate Amino Transf (AST/SGOT) 23, Alanine Aminotransferase (ALT/SGPT) 24, Total Creatine Kinase 86, Alkaline Phosphatase 62, Total Bilirubin 0.5, Direct Bilirubin 0.2, Total Protein 6.6, Albumin 3.5 Assessment/Plan 73 year old male with PMH of paroxysmal atrial fibrillation because of palpitation which started at 11 am today. He had been in the ED for the same complaint and was in Afib with RVR at that vist he converted to sinus after management in ED so went home. Yesterday he had any episode of dizziness and today around 11 am his palpitation restarted with light headed ness of and on. He has been battling with a bad cough for the past 2 weeks. He was diagnosed with bronchitis in the middle of January and received a course of amoxicillin and prednisone. his cough is better but still there. It is dry with no phlegm production and comes in bouts. He denied any fever or chills or any SOB or chest pain. In ED he was again in Afib with RVR. he was not given betablocker as he had a bad reaction to it before when his heart rate had really dangerously bradyed down. He was given 2 doses of amiodarone 150 mg, 2 doses of digoxin 0.25 mg. He had briefly converted to sinus but then went back to afib again and continued to be in A fib with RVR with rates i 140s to 160s so he is being admitted to the hospital. The management was discussed with Dr Freeman by Dr Hatfield in ED . I will continue to follow his advice of amiodarone and further digoxin loading. Atrial fibrillation with RVR will admit to PCU with TELE continue Amiodarone 400 mg bid will continue with digoxin loading till a dose of 1 mg total. continue eliquis cardiology consult Dr Freeman patient follows with Dr hanson as outpatient. Coronary artery disease with coronary artery bypass graft (CABG) times three. continue with statin Hypothyroidism. continue with synthroid BPH with LUTs had acute urinary retension in November after cardiac ablation requiring a week of pruitt continue flomax Mitral insufficiency. mild as seen in [facility] in 2018. Hypertension. will hold amlodipine for now as bp well controlled. Hyperlipidemia. 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 chronic Plan / VTE VTE Prophylaxis Ordered?: Yes ABDOULAYE JORDAN MD Feb 09, 2019 21:25
[2019-02-09 23:01] VITALS: BP 118/80
[2019-02-09] MEDS: DOCUSATE SODIUM 100 MG CAP PO SCH (23:15)
[2019-02-09] MEDS: AMIODARONE 200 MG TAB (PACERONE) PO SCH (23:15)
[2019-02-09] MEDS: ROSUVASTATIN 10 MG TAB (CRESTOR) PO SCH (23:16)
[2019-02-09] MEDS: APIXABAN 5 MG TAB (ELIQUIS) PO SCH (23:16)
[2019-02-09] MEDS: LATANOPROST 0.005% OPHTH SOLN 2.5 ML OS SCH (23:24)
[2019-02-09] MEDS ORDERED: DIGOXIN INJ 0.5 MG/2 ML AMP (J1160) IV ONE (23:30)
[2019-02-10 04:00] VITALS: BP 115/62
[2019-02-10] MEDS ORDERED: LEVOTHYROXINE 125MCG TABLET (0.125MG) PO SCH (06:00)
[2019-02-10] MEDS ORDERED: SLF 3 ML SYR IV PRN (07:30)
[2019-02-10 07:47] VITALS: BP 132/73
[2019-02-10] MEDS: DOCUSATE SODIUM 100 MG CAP PO SCH ×2 (08:31→20:26)
[2019-02-10] MEDS: APIXABAN 5 MG TAB (ELIQUIS) PO SCH ×2 (08:31→20:26)
[2019-02-10] MEDS: AMIODARONE 200 MG TAB (PACERONE) PO SCH ×2 (08:31→20:26)
[2019-02-10] MEDS ORDERED: TAMSULOSIN 0.4 MG CAP PO SCH (09:00)
[2019-02-10] MEDS ORDERED: TIMOLOL XE GFS 0.5% OPHTH 5 ML OU SCH (09:00)
[2019-02-10] MEDS: SLF 3 ML SYR IV SCH ×2 (10:54→20:27)
[2019-02-10 11:18] VITALS: BP 129/71
[2019-02-10 15:30] VITALS: BP 112/58
--- NOTE | 2019-02-10 17:02 | IPNPDOC ---
Subjective Date Seen The patient was seen on 02/10/19. Subjective Chief Complaint/HPI 73m with hx of paf on eliquis, cad and hypothyroid who was admitted with multiple episodes of rapid afib. pt is comfortable, no complaints. Has been in sinus since midnight last night Full ROS performed and negative except as above Objective Physical Examination General Exam: Positive: Alert, Cooperative, No Acute Distress Eye Exam: Positive: PERRLA, Conjunctiva & lids normal, EOMI; Negative: Sclera icteric ENT Exam: Positive: Atraumatic, Mucous membr. moist/pink, Pharynx Normal Neck Exam: Positive: Supple; Negative: JVD, thyromegaly Chest Exam: Positive: Clear to auscultation, Normal air movement Heart Exam: Positive: Tachycardic, Irregular Rhythm, Normal S1, Normal S2; Negative: Gallops, Murmurs, Rubs Telemetry: Positive: Atrial fibrillation Abdomen Exam: Positive: Normal bowel sounds, Soft; Negative: Tenderness, Hepatospenomegaly Extremity Exam: Negative: Clubbing, Cyanosis, Edema Skin Exam: Positive: Nl turgor and temperature; Negative: Breakdown, Lesion Assessment /Plan Assessment 73m with PAF AF continue eliquis continue amio received a dose of dig last night awaiting cardio input hypothyroid stable continue synthroid bph continue flomax glaucoma continue eye drops Plan/VTE VTE Prophylaxis Ordered?: Yes VS, I&O, 24H, [facility] Vital Signs/I&O Vital Signs Date Time Temp Pulse Resp B/P (MAP) Pulse Ox O2 Delivery O2 Flow Rate FiO2 02/10/19 15:30 98.2 61 19 112/58 (76) 93 02/09/19 21:46 Room Air I&O- Last 24 Hours up to 6 AM 02/10/19 06:00 Intake Total 110 ml Output Total 250 ml Balance -140 ml Laboratory Data 24H LABS Laboratory Tests 2 02/09/19 18:11: Total Creatine Kinase 76, Creatine Kinase MB 1.7, Creatine Kinase MB Relative Index 2.24, Troponin I < 0.02 02/10/19 04:36: Magnesium Level 2.4 CLAUDE ROPER MD Feb 10, 2019 17:02
[2019-02-10 20:00] VITALS: BP 145/71
[2019-02-10] MEDS: ROSUVASTATIN 10 MG TAB (CRESTOR) PO SCH (20:26)
[2019-02-10] MEDS: LATANOPROST 0.005% OPHTH SOLN 2.5 ML OS SCH (20:26)
[2019-02-10] MEDS ORDERED: AMIO200T PO (20:38)
--- NOTE | 2019-02-10 20:42 | DS.PDOC ---
Discharge Summary General Date of Admission Feb 09, 2019 at 20:55 Date of Discharge 02/10/19 Specialist/Consultants Involve: NAIF CHEN MD Discharge Summary PROCEDURES PERFORMED DURING STAY: None. ADMITTING DIAGNOSES: 1. A. fib with RVR, dizziness. DISCHARGE DIAGNOSES: 1. A. fib with RVR, dizziness. COMPLICATIONS/CHIEF COMPLAINT: Atrial Fibrillation With Rvr. HISTORY OF PRESENT ILLNESS: 73 year old male with PMH of paroxysmal atrial fibrillation because of palpitation which started at 11 am today. He had been in the ED for the same complaint and was in Afib with RVR at that vist he converted to sinus after management in ED so went home. Yesterday he had any episode of dizziness and today around 11 am his palpitation restarted with light headed ness of and on. He has been battling with a bad cough for the past 2 weeks. He was diagnosed with bronchitis in the middle of January and received a course of amoxicillin and prednisone. his cough is better but still there. It is dry with no phlegm production and comes in bouts. He dinied any fever or chills or any SOB or chest pain. In ED he was again in Afib with RVR. he was not given betablocker as he had a bad reaction to it before when his heart rate had really dangerously bradyed down. He was given 2 doses of amiodarone 150 mg, 2 doses of digoxin 0.25 mg. He had briefly converted to sinus but then went back to afib again and continued to be in A fib with RVR with rates i 140s to 160s so he is being admitted to the hospital. The management was discussed with Dr Freeman by Dr Hatfield in ED . I will continue to follow his advice of amiodarone and further digoxin loading.. HOSPITAL COURSE: Patient was admitted with frequent episodes of dizziness and palpitations secondary to A. fib with RVR. Patient was loaded with amiodarone while during his stay in the hospital which he converted back to normal sinus rhythm. I was called by Dr. michelle. The patient is clinically stable and can be discharged home on amiodarone 400 mg by mouth twice a day until he follows up with his site promotion agent Dr. Freeman in 2-3 days. And will also advised to continue all other patient's home medications. DISCHARGE MEDICATIONS: Please see below. ALLERGIES: Please see below. PHYSICAL EXAMINATION ON DISCHARGE: VITAL SIGNS: Please see below. GENERAL: I did not personally examined patient HEENT: NECK: CARDIOVASCULAR EXAMINATION: RESPIRATORY EXAMINATION: ABDOMINAL EXAMINATION: EXTREMITIES: SKIN: NEUROLOGICAL EXAMINATION: PSYCHIATRIC EXAMINATION: LABORATORY DATA: Please see below. IMAGING: PROGNOSIS: Good ACTIVITY: As tolerated. DIET: , 2 g sodium DISCHARGE PLAN: Home. Follow with cardiology in 2-3 days DISPOSITION: . Home DISCHARGE INSTRUCTIONS: 1. As per separate discharge instruction sheet. ITEMS TO FOLLOWUP ON ON OUTPATIENT: 1. Follow with cardiology in 2-3 days. DISCHARGE CONDITION: Stable. TIME SPENT ON DISCHARGE: 20 minutes. Vital Signs/I&Os Vital Signs Date Time Temp Pulse Resp B/P (MAP) Pulse Ox O2 Delivery O2 Flow Rate FiO2 02/10/19 20:00 98.6 66 16 145/71 (95) 93 02/09/19 21:46 Room Air I&O- Last 24 Hours up to 6 AM 02/10/19 05:59 Intake Total 110 ml Output Total 250 ml Balance -140 ml Laboratory Data Labs 24H Laboratory Tests 2 02/10/19 04:36: Magnesium Level 2.4 Discharge Medications Scheduled Amiodarone HCl (Amiodarone HCl) 200 Mg Tablet, 400 MG PO BID Amlodipine Besylate (Amlodipine Besylate) 5 Mg Tab, 5 MG PO DAILY, (Reported) Apixaban (Eliquis) 5 Mg Tab, 5 MG PO BID, (Reported) Calcium/Magnesium (Calcium with Magnesium Tab) 1 Each Tablet, 1 EACH PO DAILY, (Reported) Cetirizine HCl (Cetirizine HCl) 10 Mg Tablet, 10 MG PO QAM, (Reported) Cholecalciferol (Vitamin D3) (Vitamin D3) 1,000 Unit Tab, 1,000 UNIT PO DAILY, (Reported) Cyanocobalamin (Vitamin B-12) (Vitamin B-12) 1,000 Mcg Tab, 1,000 MCG PO DAILY, (Reported) Flaxseed Oil (Flaxseed Oil) 1,000 Mg Cap, 1,000 MG PO DAILY, (Reported) Latanoprost (Xalatan) 0.005 % Margarita, 1 DROP OS QHS, (Reported) Lecithin, Soy (Lecithin) 1,200 Mg Capsule, 1,200 MG PO BID, (Reported) Levothyroxine Sodium (Synthroid) 125 Mcg Tab, 125 MCG PO QAM, (Reported) Multivit-Min/FA/Lycopen/Lutein (Essential Man Tablet) 1 Tab Tab, 1 TAB PO DAILY, (Reported) [place]-3/Dha/Epa/Fish Oil (Fish Oil 1,000 mg Softgel) 1 Each Capsule, 1,000 MG PO DAILY, (Reported) Rosuvastatin Calcium (Rosuvastatin Calcium) 5 Mg Tab, 5 MG PO QPM, (Reported) Tamsulosin HCl (Flomax) 0.4 Mg Capsule, 0.4 MG PO DAILY, (Reported) Timolol Maleate (Timoptic-Xe) 0.5 % Margarita, 1 DROP OU DAILY, (Reported) Ubidecarenone (Co Q-10) 10 Mg Cap, 10 MG PO DAILY, (Reported) Scheduled PRN Acetaminophen with Codeine (Acetaminophen-Cod #3 Tablet) 1 Tab Tab, 0.5 TAB PO BID PRN for PAIN, (Reported) Allergies Coded Allergies: amiodarone (Verified Allergy, Mild, ITCHING (WITH HIGHER DOSES), 02/09/19) PT TAKES ZYRTEC TO COMBAT ITCHING, SAYS IT SEEMS TO HELP simvastatin (Verified Allergy, Unknown, UNKNOWN, 02/09/19) REJI BULLOCK MD Feb 10, 2019 20:42
--- NOTE | 2019-02-11 22:56 | CR ---
DATE OF CONSULTATION: 02/10/2019 REFERRING PROVIDER: RAISA Hinton PRIMARY PHYSICAL OPTICS TEACHER: Dr.. Mandy Khan. PRIMARY CARE PHYSICIAN: Dr. Paul Rapp REASON FOR CONSULTATION: Atrial fibrillation. HISTORY OF PRESENT ILLNESS: This is a 73-year-old man with a History of coronary artery disease (CAD) and coronary artery bypass grafting (CABG) in 2007 and last Fall he was diagnosed with atrial fibrillation. He was mechanically cardioverted but was having paroxysmal atrial fibrillation and for this reason he was referred for ablation and this was done in the month of November 2018 at [facility] by Dr. Amilcar Martinez. Since then he has been doing well until Sunday prior to the weekend when he presented here with atrial fibrillation. He was treated and discharged home in the evening but came back yesterday morning with atrial fibrillation. He was treated in the emergency room (ER) with oral amiodarone and received a loading dose of digoxin and then admitted for further management and monitoring. Cardiology consult was called. When I saw Mr. Abdirahman Salinas this evening he was supine in bed in no acute distress at rest and is looking forward going home. He stated that since earlier this morning, he has been in sinus rhythm. His was at bedside. He denies any chest pain, dizziness, lightheadedness, syncope or near syncope. He has a history of sinus bradycardia. When he presented with paroxysmal atrial position on Sunday and yesterday, he had some chest discomfort associated with the atrial fibrillation. His serum troponin, however, remained negative. He denies any bleeding. He takes his medication regularly. He is very active. The only change is a bronchitis/laryngitis he was having but he is getting much better and he was treated with by mouth antibiotics and prednisone. He denies any pedal edema, focal manifestation. He denies any dysuria, polyuria or hematuria. He has no nausea, vomiting, diarrhea, melena or hematemesis. His cough has improved significantly. 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 There is no history of myocardial infarction, cerebral vascular accident/transient ischemic attack (CVA/TIA) , diabetes mellitus, kidney disease, cardiomyopathy or sudden cardiac . On 04/12/2018 he had an echocardiogram done here at the hospital and it revealed normal left ventricular ejection fraction (LVEF) estimated at 60-65% with mild mitral regurgitation and trace aortic radiation. Not mentioned above, he had a chest CT in the past that revealed a mildly dilated thoracic aorta at 4.1 cm. PAST SURGICAL HISTORY: Past surgical history is positive as mentioned above for the CABG on 09/12/2007, bilateral cataract extraction, surgery done on the cervical spine for a fracture, and bone spur removed on the right foot. FAMILY HISTORY: Noncontributory. SOCIAL HISTORY: The patient lives with his and they have a daughter who lives in the [facility] and she is an intensive care unit (ICU) nurse. He denies any smoking or EtOH abuse. ALLERGIES: He has intolerance to SIMVASTATIN. MEDICATIONS AT HOME: - amiodarone 100 mg by mouth daily - amlodipine 5 mg by mouth daily - apixaban 5 mg by mouth twice a day - calcium/magnesium one tablet by mouth daily - cetirizine for allergies 10 mg by mouth daily - vitamin D 1000 units by mouth daily - vitamin B12 1000 mg capsule by mouth daily - latanoprost eye drops for glaucoma 0.005% at bedtime, left eye - levothyroxine 125 mcg by mouth daily - fish oil one capsule by mouth daily - rosuvastatin 5 mg by mouth daily - tamsulosin for benign prostatic hypertrophy (BPH) 0.4 mg by mouth daily - Timolol eye drops 0.5% both eyes daily - CoQ 10 by mouth daily, as well as flax seed and Lecithin - he also uses Tylenol plus Codeine as needed for pain CURRENT MEDICATIONS - Tamsulosin 0.4 mg by mouth - Timolol 0.5% both eyes daily - levothyroxine 125 mcg by mouth daily - docusate sodium 100 mg by mouth twice a day - apixaban 5 mg by mouth twice a day - Xalatan eye drops 0.005% left eye at hour of sleep - rosuvastatin 5 mg by mouth daily - amiodarone 400 mg by mouth twice a day PHYSICAL EXAMINATION: The patient is alert and oriented, in no acute distress at rest. Most recent vital signs reveal blood pressure of 1145/71 with a pulse of 66, respirations 69 maximum temperature is 98.5 degrees Fahrenheit with an oxygen saturation of 93- 94% on room air. He has a negative fluid balance of 146 mL. Head: This over that examination of the head: Atraumatic. Neck: Neck is supple and no jugular venous distention (JVD) appreciated. Lungs: Clear bilaterally on this occasion without any wheezing or crackles. Heart: Examination revealed a irregular heart sounds without gallops. The point of maximal impulse (PMI) is not displaced. There is no rub. I could not appreciate any murmurs. Abdomen: Soft and nontender, soft and nontender. Bowel sounds are active. Extremities reveal no pitting edema. There are full pulses. Dorsalis pedis are +1 and equal. Neurological examination is negative for focal deficit. LABORATORY DATA: Basic metabolic profile (BMP) done yesterday, 02/10/2019 revealed a sodium of 142, potassium 3.8, chloride 105, CO2 29, BUN 14, creatinine 0.8, GFR more than 60, fasting glucose 137, calcium 9.0. Serum magnesium is 2.4. Liver enzymes revealed a total bilirubin of 0.5, direct bilirubin 0.2, AST 23, ALT 24, alkaline phosphatase 62. Total protein 6.6, albumin 3.5. Serum TSH was 2.2 with a free T4 of 1.54. Troponin is less than 0.02 times two. CBC revealed a WBC of 5.8, hemoglobin 16.4, hematocrit 50.3 and platelet 229,000 done on 02/09/2019. PT was 15.2, with an INR of 1.23 and a PTT of 40.1. Serum d-Dimer was 1155. Chest x-ray on 02/09/2019 revealed no acute cardiopulmonary disease process. Chest CT done on 02/09/2019 revealed no evidence of pulmonary embolism but the chronic rounded atelectasis in the left lower base including the lingula and left lower lobe. There was also chronic atherosclerotic disease with evidence of cardiomegaly and prior CABG. There was no suggestion of pericardial effusion. EKG on admission revealed atrial fibrillation at 141 beats per minute and evidence of left ventricular hypertrophy and nonspecific ST-T abnormalities, done on 02/09/2019. Telemetry was reviewed and revealed now atrial fibrillation. IMPRESSION: 1. Paroxysmal atrial fibrillation in this 73-year-old male with a history of coronary artery bypass grafting (CABG), hypertension, hyperlipidemia, hypothyroidism for which he has had recent atrial fibrillation, recent ablation on 11/26/2018 at [facility]. He is currently in normal sinus rhythm. His vital signs are stable. He wants to go home and if he has no other medical issues, he can be discharged home. He was told to restart his amiodarone at 100 mg by mouth daily and he can take an extra dose as needed if he feels his heart rate is going fast for greater than 15 minutes. He was reassured that episodes of paroxysmal atrial fibrillation can happen in that window after the admission. This probably was triggered by his bronchitis. He denies any obstructive sleep apnea and this was concurred by his . He will call the tomorrow to make an appointment within 1-2 weeks and he will continue to follow with his primary. He does have an appointment to see his comsec manager, Dr. Amilcar Martinez in the early fall. It was a pleasure to assist in the care of Mr. Abdirahman Salinas for his underlying cardiac condition. Once again, he appears to be stable and he may be discharged home if it is okay with the hospitalist. The case was discussed with hospitalist kathi castanon. KENNEDY
== END 2019-02-10 21:15 | disposition home or self-care (01) | DRG 310 ==
LOC: M ED 12:14 → M ED INP 20:55 → M PCU 22:49
PROVIDERS: ADMIT Internal Medicine Nephrology; ATTEND Internal Medicine
DX: I48.0 Paroxysmal atrial fibrillation (principal); Z79.899 Other long term (current) drug therapy; Z88.8 Allergy status to other drugs, medicaments and biological substances; E03.9 Hypothyroidism, unspecified; E78.5 Hyperlipidemia, unspecified; I10 Essential (primary) hypertension; I25.10 Atherosclerotic heart disease of native coronary artery without angina pectoris; Z95.1 Presence of aortocoronary bypass graft; I34.0 Nonrheumatic mitral (valve) insufficiency; Z87.891 Personal history of nicotine dependence; N40.0 Benign prostatic hyperplasia without lower urinary tract symptoms; H40.9 Unspecified glaucoma

== ENCOUNTER 2019-04-01 08:49 | Inpatient (IN) | payer MEDICARE, OTHER ==
[~2019-04-01] VITALS: Ht 180.3 cm; Wt 69.1 kg
[~2019-04-01 08:49] MED LIST changes: +CALCTAB15 PO; +CETI-14 PO; +LECI1CAP2 PO; +OMEG10002 PO
[2019-04-01] MEDS ORDERED: METO1TAB87 PO (08:58)
[2019-04-01] MEDS ORDERED: METOPROLOL 5 MG/5 ML VIAL IV SCH (09:15)
[2019-04-01 09:30] LABS: BASO # 0.1 10^3/uL (0.0-0.2); EOS # 1.2 10^3/uL (0.0-0.5); EOS % 14.6 % (0.0-3.0); HEMATOCRIT 50.3 % (42.0-52.0); HEMOGLOBIN 16.5 g/dl (13.5-17.5); LYMPH # 2.1 10^3/uL (1.5-5.0); LYMPH % 24.9 % (24.0-44.0); MEAN CORPUSCULAR HGB CONC 32.8 g/dl (32.0-36.5); MEAN CORPUSCULAR VOLUME 94.5 fl (80.0-96.0); MONO # 0.8 10^3/uL (0.0-0.8); MONO % 9.3 % (0.0-5.0); NEUTROPHILS # 4.2 10^3/uL (1.5-8.5); PLATELET COUNT, AUTOMATED 230 10^3/uL (150-450); RED BLOOD COUNT 5.32 10^6/uL (4.30-6.10); WHITE BLOOD COUNT 8.4 10^3/uL (4.0-10.0)
--- NOTE | 2019-04-01 09:30 | REP ---
CHEST PORTABLE: Two AP portable views of the chest are performed and compared to a prior study of 02/09/2019. There is chronic left base parenchymal opacity medially behind the heart, which is unchanged. There is cardiomegaly and chronic venous hypertension unchanged. Interstitial prominence diffusely bilaterally is unchanged. There are multiple sternal wires and mediastinal clips present. IMPRESSION: Stable chronic changes as above. Electronically Signed by Checo Barriga MD 04/01/2019 10:07 A
[2019-04-01] MEDS ORDERED: DIGOXIN INJ 0.5 MG/2 ML AMP (J1160) IV ONE ×2 (09:45→12:00)
[2019-04-01 11:15] LABS: BLOOD UREA NITROGEN 24 MG/DL (7-18); CARBON DIOXIDE LEVEL 27 MEQ/L (21-32); CHLORIDE LEVEL 105 MEQ/L (98-107); CK-MB VALUE MASS 1.4 NG/ML (<3.6); CPK CREATINE PHOSPHOKINASE 56 U/L (39-308); CREATININE FOR GFR 0.94 MG/DL (0.70-1.30); FREE T4 1.75 NG/DL (0.76-1.46); GLOMERULAR FILTRATION RATE > 60.0 (>42); GLUCOSE, FASTING 116 MG/DL (70-100); POTASSIUM SERUM 4.1 MEQ/L (3.5-5.1); SODIUM LEVEL 140 MEQ/L (136-145); TROPONIN I < 0.02 NG/ML (< 0.10)
[2019-04-01] MEDS ORDERED: METOPROLOL TART 25 MG TABLET PO SCH ×2 (14:40→21:00)
[2019-04-01] MEDS ORDERED: METOPROLOL 5 MG/5 ML VIAL IV PRN (14:45)
--- NOTE | 2019-04-01 15:00 | HPEPDOC ---
General Date of Admission 04/01/19 Date of Service: Apr 01, 2019 Primary Care Physician: Manuela Aiken Attending Physician: JOSEPH WITT DO Chief Complaint The patient is a 73-year-old male admitted with a reason for visit of Cardiac Problem. History of Present Illness Patient is 73 years old male with past medical history of coronary artery disea se (CAD) and coronary artery bypass grafting (CABG) in 2007, atrial fibrillation presented to the hospital with atrial flutter. He was mechanically cardioverted before in 2017 but was having paroxysmal atrial fibrillation and for this reason he was referred for ablation and this was done in the month of November 2018 at [facility] in [place]. After ablation patient developed atrial fibrill ation again. Patient was on the amiodarone therapy, which was stopped in February, patient developed some itchiness on amiodarone. The customer experience associate decided to place him on Tikosyn, amiodarone was stopped 2 weeks ago. Plan for Tikosyn APRIL 20. After amiodarone was stopped patient developed rapid heart rate with range 120 to [address] Khan 2 days ago, metoprolol was initiated 25 mg twice a day. However heart rate was still in the range 120. Today in ER patient was found to have heart rate around 130. EKG showed atrial flutter with rapid ventricular rate. Dr. Khan was contacted, he recommended loading dose of digitalis, continue metoprolol by mouth, Lopressor IV. Home Medications Scheduled Amlodipine Besylate (Amlodipine Besylate) 5 Mg Tab, 2.5 MG PO DAILY, (Reported) Apixaban (Eliquis) 5 Mg Tab, 5 MG PO BID, (Reported) Calcium/Magnesium (Calcium with Magnesium Tab) 1 Each Tablet, 1 EACH PO DAILY, (Reported) Cholecalciferol (Vitamin D3) (Vitamin D3) 1,000 Unit Tab, 1,000 UNIT PO DAILY, (Reported) Cyanocobalamin (Vitamin B-12) (Vitamin B-12) 1,000 Mcg Tab, 1,000 MCG PO DAILY, (Reported) Flaxseed Oil (Flaxseed Oil) 1,000 Mg Cap, 1,000 MG PO DAILY, (Reported) Latanoprost (Xalatan) 0.005 % Margarita, 1 DROP OS QHS, (Reported) Lecithin, Soy (Lecithin) 1,200 Mg Capsule, 1,200 MG PO BID, (Reported) Levothyroxine Sodium (Synthroid) 125 Mcg Tab, 125 MCG PO QAM, (Reported) Metoprolol Tartrate (Metoprolol Tartrate) 25 Mg Tablet, 25 MG PO BID, (Reported) Multivit-Min/FA/Lycopen/Lutein (Essential Man Tablet) 1 Tab Tab, 1 TAB PO DAILY, (Reported) [place]-3/Dha/Epa/Fish Oil (Fish Oil 1,000 mg Softgel) 1 Each Capsule, 1,000 MG PO DAILY, (Reported) Rosuvastatin Calcium (Rosuvastatin Calcium) 5 Mg Tab, 5 MG PO QPM, (Reported) Timolol Maleate (Timoptic-Xe) 0.5 % Margarita, 1 DROP OU DAILY, (Reported) Ubidecarenone (Co Q-10) 10 Mg Cap, 10 MG PO DAILY, (Reported) Scheduled PRN Acetaminophen with Codeine (Acetaminophen-Cod #3 Tablet) 1 Tab Tab, 0.5 TAB PO BID PRN for PAIN, (Reported) Allergies Coded Allergies: amiodarone (Verified Allergy, Mild, ITCHING (WITH HIGHER DOSES), 02/09/19) PT TAKES ZYRTEC TO COMBAT ITCHING, SAYS IT SEEMS TO HELP simvastatin (Verified Allergy, Unknown, UNKNOWN, 02/09/19) tamsulosin (Verified Allergy, Unknown, EXTREME COUGHING, 04/01/19) Past Medical History Medical History Paroxysmal atrial fibrillation s/p dc conversion in May 2018 and s/p ablation in November 2018 Paroxysmal atrial flutter. Coronary artery disease with coronary artery bypass graft (CABG) times three. Hypothyroidism. Mitral insufficiency. Hypertension. Hyperlipidemia. 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 Surgical History Surgical History Cardiac ablation in November 2018 Cardioversion in 2018 Triple bypass in 2007. Bone spur Family History Surgical History Cardiac ablation in November 2018 Cardioversion in 2018 Triple bypass in 2007. Bone spur Social History * Smoker: former Smoker Alcohol: Denies Drugs: denies A-FIB/CHADSVASC A-FIB History Current/History of A-Fib/PAF?: Yes Current PO Anticoag Therapy: Yes Review of Systems Constitutional: Denies: Chills, Fever Eyes: Denies: Pain, Vision change ENT: Denies: Head Aches, Ear Pain Skin: Denies: Rash, Lesions Pulmonary: Denies: Dyspnea, Cough Cardiovascular: Reports: Palpitations; Denies: Chest Pain Gastrointestinal: Denies: Nausea, Vomiting Genitourinary: Denies: Dysuria, Frequency Hematologic: Denies: Bruising, Bleeding Excessively Endocrine: Denies: Polydipsia, Polyphagia Musculoskeletal: Denies: Neck Pain, Back Pain Neurological: Denies: Weakness, Numbness Psych: Reports: Mood Normal Physical Examination General Exam: Positive: Alert, Cooperative Eye Exam: Positive: PERRLA, Conjunctiva & lids normal ENT Exam: Positive: Atraumatic Neck Exam: Positive: Supple; Negative: JVD Chest Exam: Positive: Clear to auscultation Heart Exam: Positive: Tachycardic, Irregular Rhythm Telemetry: Positive: Atrial fibrillation Abdomen Exam: Positive: Normal bowel sounds Extremity Exam: Negative: Clubbing, Cyanosis Skin Exam: Positive: Nl turgor and temperature Neuro Exam: Positive: Normal Gait, Strength at 5/5 X4 ext, Cranial Nerves 3-12 NL Psych Exam: Positive: Mental status NL Vital Signs Vital Signs Date Time Temp Pulse Resp B/P (MAP) Pulse Ox O2 Delivery O2 Flow Rate FiO2 04/01/19 12:50 134 18 93 Room Air 04/01/19 12:45 128/97 (107) 04/01/19 08:49 97.0 Laboratory Data Labs 24H Laboratory Tests 2 04/01/19 09:18: Immature Granulocyte % (Auto) 0.2, White Blood Count 8.4, Red Blood Count 5.32, Hemoglobin 16.5, Hematocrit 50.3, Mean Corpuscular Volume 94.5, Mean Corpuscular Hemoglobin 31.0, Mean Corpuscular Hemoglobin Concent 32.8, Red Cell Distribution Width 15.3H, Platelet Count 230, Neutrophils (%) (Auto) 50.0, Lymphocytes (%) (Auto) 24.9, Monocytes (%) (Auto) 9.3H, Eosinophils (%) (Auto) 14.6H, Basophils (%) (Auto) 1.0, Neutrophils # (Auto) 4.2, Lymphocytes # (Auto) 2.1, Monocytes # (Auto) 0.8, Eosinophils # (Auto) 1.2H, Basophils # (Auto) 0.1, Nucleated Red Blood Cells % (auto) 0.0 04/01/19 10:23: Anion Gap 8, Glomerular Filtration Rate > 60.0, Blood Urea Nitrogen 24H, Creatinine 0.94, Sodium Level 140, Potassium Level 4.1, Chloride Level 105, Carbon Dioxide Level 27, Calcium Level 9.0, Total Creatine Kinase 56, Creatine Kinase MB 1.4, Creatine Kinase MB Relative Index 2.50, Troponin I < 0.02, Thyroid Stimulating Hormone (TSH) 1.730, Free Thyroxine 1.75H CBC/BMP Laboratory Tests 04/01/19 09:18 Red Blood Count 5.32, Mean Corpuscular Volume 94.5, Mean Corpuscular Hemoglobin 31.0, Mean Corpuscular Hemoglobin Concent 32.8, Red Cell Distribution Width 15.3 H, Neutrophils (%) (Auto) 50.0, Lymphocytes (%) (Auto) 24.9, Monocytes (%) (Auto) 9.3 H, Eosinophils (%) (Auto) 14.6 H, Basophils (%) (Auto) 1.0, Neutrophils # (Auto) 4.2, Lymphocytes # (Auto) 2.1, Monocytes # (Auto) 0.8, Eosinophils # (Auto) 1.2 H, Basophils # (Auto) 0.1 04/01/19 10:23 Calcium Level 9.0, Total Creatine Kinase 56 Assessment/Plan Patient is 73 years old male with past medical history of coronary artery disease (CAD) and coronary artery bypass grafting (CABG) in 2007, atrial fibrillation presented to the hospital with atrial flutter. Problems (1) Atrial fibrillation with rapid ventricular response Status: Acute Problem Text: Digitalis load I'll check magnesium, phosphorus Appreciate/agree with Dr. Khan recommendation Metoprolol 25 every 6 hours Lopressor IV when necessary with parameters Monitor troponin Plan / VTE VTE Prophylaxis Ordered?: Yes JOSEPH WITT DO Apr 01, 2019 15:00
[2019-04-01 15:41] LABS: CK-MB VALUE MASS 1.4 NG/ML (<3.6); CPK CREATINE PHOSPHOKINASE 58 U/L (39-308); MAGNESIUM LEVEL 2.4 MG/DL (1.8-2.4); MB/CK RELATIVE INDEX 2.41 (< OR =4); PHOSPHORUS LEVEL 2.9 MG/DL (2.5-4.9); TROPONIN I < 0.02 NG/ML (< 0.10)
[2019-04-01] MEDS: METOPROLOL TART 25 MG TABLET PO SCH ×2 (16:28→23:43)
[2019-04-01] MEDS: VITAMIN D 1,000 INTERNATIONAL UNITS TABLET PO SCH (16:28)
--- NOTE | 2019-04-01 17:44 | ECGEPIP ---
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
[2019-04-01] MEDS ORDERED: DIGOXIN 0.25 MG TAB PO ONE (19:30)
--- NOTE | 2019-04-01 19:32 | CR ---
DATE OF CONSULTATION: 04/01/2019 I was asked to see Mr. Salinas by the hospitalist team for atrial fibrillation with rapid ventricular response. HISTORY OF PRESENT ILLNESS: Mr. Salinas is known to me. He is a very pleasant 73-year-old man who has a remote history of coronary artery bypass grafting but lately has been plagued mostly by paroxysmal atrial flutter/fibrillation. He underwent ablation by Dr. Martinez in [facility] in [place] in November. It was briefly successful, but then he relapsed and was started on amiodarone but had side effects and the medication was ultimately completely discontinued in approximately middle February 2019. He was initially doing well, but in the last approximately week has had episodes of presumptively atrial flutter or fibrillation. He monitors his pulse at home religiously, and he started having episodes of tachycardia with ventricular rate around 130-140 beats per minute. He usually would lay down, and the arrhythmia would resolve spontaneously in a matter of a few minutes and sometimes a few hours. But in the last several days, the frequency of episodes increased markedly and in last approximately 48 hours it looks like he has had persistent tachycardia. He called our office and then also Dr. Martinez and was advised to take metoprolol on an as-needed basis, but it was not effective and he came to our emergency room earlier today. He was found to be tachycardic, in atrial flutter with probably 2:1 conduction and ventricular rate approximately 140 beats per minute. He was given several doses of IV metoprolol and then oral metoprolol and oral digoxin, in total dose 0.75 mg that did not have any effect on his heart rate. Consequently, it was decided to admit the patient for further management. I saw the patient in progressive care unit (PCU) bed. He is laying watching TV, having no symptoms. He says that occasionally he can feel the palpitations but not all the time. Denies any shortness of breath or chest discomfort. PAST MEDICAL HISTORY: 1. Paroxysmal atrial flutter/fibrillation. As outlined above. There is no history of syncope or near syncope. He had a Holter monitor in December of this year that revealed sinus rhythm with heart rate occasionally bradycardiac range in the high 40s, average heart rate though was 91 beats per minute. He did not have any episodes of atrial fibrillation or flutter at that point. 2. Coronary artery disease with history of coronary artery bypass graft (CABG) in 2007. (AMAYA to LAD, OLIVER to PDA, free radial graft to obtuse marginal). 3. Chronic obstructive pulmonary disease (COPD). 4. History of hyperthyroidism. 5. Last echocardiogram revealed preserved left ventricular systolic function. Trace aortic and tricuspid insufficiency and mild aortic insufficiency. SURGICAL HISTORY: Positive for CABG, excision of bone spurs and bilateral cataract surgery. OUTPATIENT MEDICATIONS: - amlodipine 5 mg daily - vitamin B12 - Crestor 5 mg daily - Eliquis 5 mg twice a day - multivitamin - Synthroid 125 mcg a day - Tylenol as needed - vitamin D. He reports intolerance or allergies to AMIODARONE, SIMVASTATIN and TAMSULOSIN. SOCIAL HISTORY: The patient is a former smoker but has not been smoking in many years. He does not drink. He is , lives with his . FAMILY HISTORY: No longer relevant but positive for coronary artery disease. REVIEW OF SYSTEMS: He denies any recent syncope and near-syncope even though at time of palpitations, he sometimes feels tired and has exertional intolerance. Denies any bleeding problems. Denies any chest discomfort. The rest as per HPI or negative. PHYSICAL EXAMINATION: Mr. Salinas is a 73-year-old man who is alert and oriented and appropriate, does not appear to be in any distress. Blood pressure is currently 144/68, heart rate in 130s, atrial flutter with 2:1 conduction. He is afebrile and saturation is 95% on room air. I do not appreciate any jugular venous pressure (JVP) elevations. Lungs are clear. Good air movement. Heart: Exam reveals regular tachycardia. I do not appreciate any gallop, rub or murmur. Abdomen is soft, nontender. There is no peripheral edema. Peripheral pulses are palpable. Neurologically, he is intact. LABORATORY: Normal CBC, normal basic metabolic panel. TSH was 1.7. Two sets of cardiac enzymes have been negative. ECG reveals atrial flutter as above. Chest x-ray reveals prior sternotomy, but otherwise I do not appreciate any distinct congestive heart failure or infiltrates. ASSESSMENT/PLAN: Mr. Salinas is a 73-year-old man who has a remote history of CABG, who presented with atrial flutter with 2:1 conduction that has been really challenging to rate control. So far he received 0.75 mg of digoxin and will complete the loading with additional 0.25 mg. He also received oral and IV metoprolol. At this point, I do not recommend to administer any additional medications. I plan to continue metoprolol 25 mg every 6 hours with holding parameters. I do expect that it is likely that the patient will convert to sinus mechanism overnight. If he does not, then we will have to make further plan from thereon. I will contact Dr. Martinez tomorrow morning. I think that we have several options; first option is to cardiovert the patient. It would be a temporizing solution, but would certainly not prevent relapses. I do not think he is a particularly good candidate for other antiarrhythmics than Tikosyn. The other possibility would be to consider placement of a pacemaker to be followed by more aggressive atrioventricular (AV) marielos blocking agents. This all can be discussed, and I believe is rather acceptable. As far as additional medical problems are concerned, even though the patient is tachycardic, he does not have any ischemic changes on ECG and does not have any ischemic symptoms. Consequently, I do not believe there is an emergency in desire to terminate his arrhythmia rapidly. KENNEDY
[2019-04-01 20:00] VITALS: BP_SYST 112; BP_SYST 113; BP_DIAS 75; BP_DIAS 88
[2019-04-01] MEDS: APIXABAN 5 MG TAB (ELIQUIS) PO SCH (20:52)
[2019-04-01] MEDS ORDERED: ROSUVASTATIN 10 MG TAB (CRESTOR) PO SCH (21:00)
[2019-04-01] MEDS ORDERED: LATANOPROST 0.005% OPHTH SOLN 2.5 ML OS SCH (21:00)
[2019-04-01] MEDS ORDERED: PILL CUTTER 1 EACH XX PRN (21:00)
[2019-04-01 23:13] LABS: CK-MB VALUE MASS 1.5 NG/ML (<3.6); CPK CREATINE PHOSPHOKINASE 73 U/L (39-308); MB/CK RELATIVE INDEX 2.05 (< OR =4); TROPONIN I < 0.02 NG/ML (< 0.10)
[2019-04-02] VITALS: BP 138/95
[2019-04-02 04:00] VITALS: BP 136/100
[2019-04-02] MEDS: METOPROLOL TART 25 MG TABLET PO SCH ×2 (05:04→12:00)
[2019-04-02 05:58] LABS: HEMATOCRIT 45.4 % (42.0-52.0); HEMOGLOBIN 14.8 g/dl (13.5-17.5); MEAN CORPUSCULAR HGB CONC 32.6 g/dl (32.0-36.5); MEAN CORPUSCULAR VOLUME 92.1 fl (80.0-96.0); PLATELET COUNT, AUTOMATED 218 10^3/uL (150-450); RED BLOOD COUNT 4.93 10^6/uL (4.30-6.10); WHITE BLOOD COUNT 10.1 10^3/uL (4.0-10.0)
[2019-04-02] MEDS ORDERED: LEVOTHYROXINE 125MCG TABLET (0.125MG) PO SCH (06:00)
[2019-04-02 06:28] LABS: BLOOD UREA NITROGEN 19 MG/DL (7-18); CARBON DIOXIDE LEVEL 28 MEQ/L (21-32); CHLORIDE LEVEL 104 MEQ/L (98-107); CK-MB VALUE MASS 1.3 NG/ML (<3.6); CPK CREATINE PHOSPHOKINASE 44 U/L (39-308); CREATININE FOR GFR 1.02 MG/DL (0.70-1.30); GLOMERULAR FILTRATION RATE > 60.0 (>42); GLUCOSE, FASTING 112 MG/DL (70-100); MAGNESIUM LEVEL 2.3 MG/DL (1.8-2.4); MB/CK RELATIVE INDEX 2.95 (< OR =4); POTASSIUM SERUM 3.7 MEQ/L (3.5-5.1); SODIUM LEVEL 139 MEQ/L (136-145); TROPONIN I < 0.02 NG/ML (< 0.10)
--- NOTE | 2019-04-02 06:59 | IPN ---
DATE: 04/01/2019 Mr. Salinas unfortunately stayed in atrial flutter with 2:1 conduction all night. There was virtually no fluctuation in his heart rate at all. He is feeling well this morning. He does not have any sensation of palpitations. Denies any dyspnea or chest discomfort, but really has not done much in the hospital. Vital Signs: Blood pressure 136/100, heart rate is 142, and he is afebrile. Saturation 92-95% on room air. Weight is 69 kg. He is alert, oriented and appropriate. His jugular venous pulse (JVP) is not up. Lungs are clear. Heart exam reveals irregular tachycardia. I do not appreciate any gallop or murmur. Abdomen is soft and nontender. Extremities are free of edema. Neurologically, he is intact. LABORATORIES: Basic metabolic panel is normal. Cardiac enzymes remain normal. CBC is also normal. ASSESSMENT/PLAN: Mr. Huynh is a 73-year-old man who has history of paroxysmal atrial fibrillation/flutter. He presented to the hospital yesterday with sustained atrial flutter that has been very difficult to slow down. Actually, he has remained in 2:1 conduction since admission with some rare exceptions of brief slowing of his heart rate. He also did not tolerate IV medications very well with dropping in his blood pressure. I believe that at this situation it is appropriate to proceed with DC cardioversion that I tentatively plan for later today. It is a temporizing measure and will not prevent recurrence of his arrhythmia. I will contact his electrophysiology doctor, Dr. Martinez in [place] and see whether we can speed up his Tikosyn loading which is now scheduled approximately 3 or 4 weeks from now. He previously was quite bradycardic after cardioversion, so it is probably not overly safe to give him excessive doses of AV marielos slowing agents. I talked to the patient about the procedure, he did sign appropriate consent. His numerous questions were answered. Addendum: I discussed the case with and patient was transferred to [facility] for Tikosyn loading and EP management. [facility] HOSPITALMadelyn
[2019-04-02] MEDS ORDERED: SLF 3 ML SYR IV PRN (07:00)
[2019-04-02 07:30] VITALS: BP 122/91
[2019-04-02] MEDS ORDERED: POTASSIUM CHLORIDE 10 MEQ SR TABLET PO ONE (07:45)
[2019-04-02 08:37] VITALS: BP 122/91
[2019-04-02] MEDS: VITAMIN D 1,000 INTERNATIONAL UNITS TABLET PO SCH (08:37)
[2019-04-02] MEDS: APIXABAN 5 MG TAB (ELIQUIS) PO SCH (08:44)
[2019-04-02] MEDS ORDERED: amLODIPine 5 MG TAB PO SCH (09:00)
[2019-04-02] MEDS ORDERED: CYANOCOBALAMIN 500 MCG TAB PO SCH (09:00)
[2019-04-02] MEDS ORDERED: TIMOLOL XE GFS 0.5% OPHTH 5 ML OU SCH (09:00)
[2019-04-02 12:00] VITALS: BP 132/94
--- NOTE | 2019-04-02 12:03 | IPNPDOC ---
Text Note Date of Service The patient was seen on 04/02/19. NOTE Subjective: No any acute events overnight, patient complains of palpitation and his heart rate continues to be around 140s. Patient denies any fever, chills, chest pain, any shortness of breath, diarrhea or dysuria Objective: Physical Examination General Exam: Positive: Alert, Cooperative Eye Exam: Positive: PERRLA, Conjunctiva & lids normal ENT Exam: Positive: Atraumatic Neck Exam: Positive: Supple; Negative: JVD Chest Exam: Positive: Clear to auscultation Heart Exam: Positive: Tachycardic, Irregular Rhythm Telemetry: Positive: Atrial fibrillation Abdomen Exam: Positive: Normal bowel sounds Extremity Exam: Negative: Clubbing, Cyanosis Skin Exam: Positive: Nl turgor and temperature Neuro Exam: Positive: Normal Gait, Strength at 5/5 X4 ext, Cranial Nerves 3-12 NL Psych Exam: Positive: Mental status NL Patient is 73 years old male with past medical history of coronary artery disease (CAD) and coronary artery bypass grafting (CABG) in 2007, atrial f ibrillation presented to the hospital with atrial flutter. He stayed in atrial flutter with 2:1 conduction all night. Problems (1) Atrial fibrillation with rapid ventricular response Electrolytes have been replaced Dr. Khan recommended cardioversion today Metoprolol 25 every 6 hours Troponin was negative, patient does not have any chest pain VS,Fishbone, I+O VS, Fishbone, I+O Laboratory Tests 04/02/19 05:41 Red Blood Count 4.93, Mean Corpuscular Volume 92.1, Mean Corpuscular Hemoglobin 30.0, Mean Corpuscular Hemoglobin Concent 32.6, Red Cell Distribution Width 15.2 H, Calcium Level 9.0, Total Creatine Kinase 44 Vital Signs Date Time Temp Pulse Resp B/P (MAP) Pulse Ox O2 Delivery O2 Flow Rate FiO2 04/02/19 08:37 143 122/91 04/02/19 07:30 97.8 20 93 04/01/19 15:20 Room Air I&O- Last 24 Hours up to 6 AM 04/02/19 06:00 Intake Total 840 ml Output Total 1100 ml Balance -260 ml JOSEPH WITT DO Apr 02, 2019 12:03
--- NOTE | 2019-04-02 13:35 | DS.PDOC ---
Discharge Summary General Date of Admission Apr 01, 2019 at 14:28 Date of Discharge 04/02/19 Primary Care Physician: Gaye Bustos Attending Physician: JOSEPH WITT DO Discharge Summary PROCEDURES PERFORMED DURING STAY: None ADMITTING DIAGNOSES: 1. Atrial fibrillation with rapid ventricular response Atrial flutter DISCHARGE DIAGNOSES: 1. 1. Atrial fibrillation with rapid ventricular response Atrial flutter COMPLICATIONS/CHIEF COMPLAINT: Atrial Fibrillation And Flutter. HISTORY OF PRESENT ILLNESS: Patient is 73 years old male with past medical history of coronary artery disease (CAD) and coronary artery bypass grafting (CABG) in 2007, atrial fibrillation presented to the hospital with atrial flutter. He was mechanically cardioverted before in 2017 but was having paroxysmal atrial fibrillation and for this reason he was referred for ablation and this was done in the month of November 2018 at [facility] in [place]. After ablation patient developed atrial fibrillation again. Patient was on the amiodarone therapy, which was stopped in February, patient developed some itchiness on amiodarone. The oracle financial application developer decided to place him on Tikosyn, amiodarone was stopped 2 weeks ago. Plan for Tikosyn APRIL 20. After amiodarone was stopped patient developed rapid heart rate with range 120 [address] Khan 2 days ago, metoprolol was initiated 25 mg twice a day. However heart rate was still in the range 120. Today in ER patient was found to have heart rate around 130. EKG showed atrial flutter with rapid ventricular rate. Dr. Khan was contacted, he recommended loading dose of digitalis, continue metoprolol by mouth, Lopressor IV. HOSPITAL COURSE: During hospital course he received 0.75 mg of digoxin and will complete the loading with additional 0.25 mg. He also received oral and IV metoprolol. Unfortunately stayed in atrial flutter with 2:1 conduction all night. There was virtually no fluctuation in his heart rate at all. He is feeling well this morning. He does not have any sensation of palpitations. Denies any dyspnea or chest discomfort. Dr. Khan recommended to transfer patient to [facility] DISCHARGE MEDICATIONS: Please see below. ALLERGIES: Please see below. PHYSICAL EXAMINATION ON DISCHARGE: VITAL SIGNS: Please see below. General Exam: Positive: Alert, Cooperative Eye Exam: Positive: PERRLA, Conjunctiva & lids normal ENT Exam: Positive: Atraumatic Neck Exam: Positive: Supple; Negative: JVD Chest Exam: Positive: Clear to auscultation Heart Exam: Positive: Tachycardic, Irregular Rhythm Telemetry: Positive: Atrial fibrillation Abdomen Exam: Positive: Normal bowel sounds Extremity Exam: Negative: Clubbing, Cyanosis Skin Exam: Positive: Nl turgor and temperature Neuro Exam: Positive: Normal Gait, Strength at 5/5 X4 ext, Cranial Nerves 3-12 NL Psych Exam: Positive: Mental status NL LABORATORY DATA: Please see below. PROGNOSIS: Favorable ACTIVITY: As tolerated DIET: Cardiac DISCHARGE PLAN: Patient will be transferred to [facility] DISPOSITION: See above DISCHARGE INSTRUCTIONS: 1. See above ITEMS TO FOLLOWUP ON ON OUTPATIENT: 1. Follow-up with oracle financial application developer in the outpatient settings after discharge DISCHARGE CONDITION: Stable TIME SPENT ON DISCHARGE: Greater than 20 minutes. Vital Signs/I&Os Vital Signs Date Time Temp Pulse Resp B/P (MAP) Pulse Ox O2 Delivery O2 Flow Rate FiO2 04/02/19 12:00 99.1 141 20 132/94 (107) 92 04/01/19 15:20 Room Air I&O- Last 24 Hours up to 6 AM 04/02/19 06:00 Intake Total 840 ml Output Total 1100 ml Balance -260 ml Laboratory Data Labs 24H Laboratory Tests 2 04/01/19 14:54: Phosphorus Level 2.9, Total Creatine Kinase 58, Magnesium Level 2.4, Creatine Kinase MB 1.4, Creatine Kinase MB Relative Index 2.41, Troponin I < 0.02 04/01/19 22:29: Total Creatine Kinase 73, Creatine Kinase MB 1.5, Creatine Kinase MB Relative Index 2.05, Troponin I < 0.02 04/02/19 05:41: Total Creatine Kinase 44, Magnesium Level 2.3, Creatine Kinase MB 1.3, Creatine Kinase MB Relative Index 2.95, Troponin I < 0.02, Nucleated Red Blood Cells % (auto) 0.0, Anion Gap 7L, Glomerular Filtration Rate > 60.0, Blood Urea Nitrogen 19H, Creatinine 1.02, Sodium Level 139, Potassium Level 3.7, Chloride Level 104, Carbon Dioxide Level 28, Calcium Level 9.0 CBC/BMP Laboratory Tests 04/02/19 05:41 Red Blood Count 4.93, Mean Corpuscular Volume 92.1, Mean Corpuscular Hemoglobin 30.0, Mean Corpuscular Hemoglobin Concent 32.6, Red Cell Distribution Width 15.2 H, Calcium Level 9.0, Total Creatine Kinase 44 Discharge Medications Scheduled Amlodipine Besylate (Amlodipine Besylate) 5 Mg Tab, 2.5 MG PO DAILY, (Reported) Apixaban (Eliquis) 5 Mg Tab, 5 MG PO BID, (Reported) Calcium/Magnesium (Calcium with Magnesium Tab) 1 Each Tablet, 1 EACH PO DAILY, (Reported) Cholecalciferol (Vitamin D3) (Vitamin D3) 1,000 Unit Tab, 1,000 UNIT PO DAILY, (Reported) Cyanocobalamin (Vitamin B-12) (Vitamin B-12) 1,000 Mcg Tab, 1,000 MCG PO DAILY, (Reported) Flaxseed Oil (Flaxseed Oil) 1,000 Mg Cap, 1,000 MG PO DAILY, (Reported) Latanoprost (Xalatan) 0.005 % Margarita, 1 DROP OS QHS, (Reported) Lecithin, Soy (Lecithin) 1,200 Mg Capsule, 1,200 MG PO BID, (Reported) Levothyroxine Sodium (Synthroid) 125 Mcg Tab, 125 MCG PO QAM, (Reported) Metoprolol Tartrate (Metoprolol Tartrate) 25 Mg Tablet, 25 MG PO BID, (Reported) Multivit-Min/FA/Lycopen/Lutein (Essential Man Tablet) 1 Tab Tab, 1 TAB PO DAILY, (Reported) Earp-3/Dha/Epa/Fish Oil (Fish Oil 1,000 mg Softgel) 1 Each Capsule, 1,000 MG PO DAILY, (Reported) Rosuvastatin Calcium (Rosuvastatin Calcium) 5 Mg Tab, 5 MG PO QPM, (Reported) Timolol Maleate (Timoptic-Xe) 0.5 % Margarita, 1 DROP OU DAILY, (Reported) Ubidecarenone (Co Q-10) 10 Mg Cap, 10 MG PO DAILY, (Reported) Scheduled PRN Acetaminophen with Codeine (Acetaminophen-Cod #3 Tablet) 1 Tab Tab, 0.5 TAB PO BID PRN for PAIN, (Reported) Allergies Coded Allergies: amiodarone (Verified Allergy, Mild, ITCHING (WITH HIGHER DOSES), 02/09/19) PT TAKES ZYRTEC TO COMBAT ITCHING, SAYS IT SEEMS TO HELP simvastatin (Verified Allergy, Unknown, UNKNOWN, 02/09/19) tamsulosin (Verified Allergy, Unknown, EXTREME COUGHING, 04/01/19) JOSEPH WITT DO Apr 02, 2019 13:35
[2019-04-02] MEDS ORDERED: SLF 3 ML SYR IV SCH (14:00)
--- NOTE | 2019-04-03 21:00 | ECGEPIP ---
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
== END 2019-04-02 15:05 | disposition short-term general hospital (02) | DRG 310 ==
LOC: M ED 08:49 → M ED INP 14:28 → M PCU 15:48
PROVIDERS: ADMIT Internal Medicine; ATTEND Internal Medicine
DX: I48.0 Paroxysmal atrial fibrillation (principal); I48.92 Unspecified atrial flutter; I10 Essential (primary) hypertension; G83.81 Brown-Sequard syndrome; I25.10 Atherosclerotic heart disease of native coronary artery without angina pectoris; Z95.1 Presence of aortocoronary bypass graft; Z79.899 Other long term (current) drug therapy; Z88.8 Allergy status to other drugs, medicaments and biological substances; I34.0 Nonrheumatic mitral (valve) insufficiency; E78.5 Hyperlipidemia, unspecified; E03.9 Hypothyroidism, unspecified; Z87.891 Personal history of nicotine dependence; J44.9 Chronic obstructive pulmonary disease, unspecified

== ENCOUNTER 2021-06-22 16:10 | Inpatient (IN) | payer MEDICARE, OTHER ==
[~2021-06-22] VITALS: Ht 180.3 cm; Wt 69.1 kg
[2021-06-22 10:30] VITALS: BP_SYST 145; BP_SYST 160; BP_DIAS 85; BP_DIAS 87
[~2021-06-22 16:10] MED LIST changes: -AMIO200T PO; +AMIO200T49 PO; +AMLO1TAB24 PO; -AMLO5TAB6 PO; -ASPI81TA85 PO; +ASPI81TA86 PO; -LECI1CAP2 PO; +METO1TAB87 PO; -XALA0.007 OS; +XALA0.007 OU; +[UNRECOGNIZED DRUG - CODE] PO
[2021-06-22] MEDS: NS 1,000 ML IV SCH (16:35)
[2021-06-22] MEDS ORDERED: ONDANSETRON 4MG/2ML VIAL IV ONE (16:45)
[2021-06-22] MEDS ORDERED: MORPHINE 2 MG/ML 1ML VIAL (J2270) IV PRN (16:45)
[2021-06-22 17:25] LABS: BASO # 0.1 10^3/uL (0.0-0.2); BASO % 0.7 % (0.0-1.0); EOS # 0.8 10^3/uL (0.0-0.5); EOS % 9.2 % (0.0-3.0); HEMATOCRIT 47.9 % (42.0-52.0); HEMOGLOBIN 15.6 g/dl (13.5-17.5); LYMPH # 0.8 10^3/uL (1.5-5.0); LYMPH % 9.3 % (24.0-44.0); MEAN CORPUSCULAR HEMOGLOBIN 30.7 pg (27.0-33.0); MEAN CORPUSCULAR HGB CONC 32.6 g/dl (32.0-36.5); MEAN CORPUSCULAR VOLUME 94.3 fl (80.0-96.0); MONO # 0.6 10^3/uL (0.0-0.8); NEUTROPHILS % 73.4 % (36.0-66.0); PLATELET COUNT, AUTOMATED 179 10^3/uL (150-450); RED BLOOD COUNT 5.08 10^6/uL (4.30-6.10); WHITE BLOOD COUNT 8.1 10^3/uL (4.0-10.0)
[2021-06-22 17:48] LABS: BLOOD UREA NITROGEN 24 MG/DL (7-18); CALCIUM LEVEL 9.2 MG/DL (8.8-10.2); CARBON DIOXIDE LEVEL 29 MEQ/L (21-32); CHLORIDE LEVEL 105 MEQ/L (98-107); CREATININE FOR GFR 0.86 MG/DL (0.70-1.30); GLOMERULAR FILTRATION RATE > 60.0 (>42); GLUCOSE, FASTING 108 MG/DL (70-100); POTASSIUM SERUM 4.5 MEQ/L (3.5-5.1); SODIUM LEVEL 140 MEQ/L (136-145)
[2021-06-22 17:49] LABS: INR 1.09; PROTHROMBIN TIME 14.6 SECONDS (12.7-14.5)
[2021-06-22 17:50] LABS: PARTIAL THROMBOPLASTIN TIME 37.8 SECONDS (25.9-37.0)
[2021-06-22 18:18] LABS: RSV AMPLIFICATION NEGATIVE (NEGATIVE)
[2021-06-22] MEDS ORDERED: MAALOX 30 ML SUSP *UDC PO PRN (18:45)
[2021-06-22] MEDS ORDERED: MOM 30ML SUSPENSION UDC PO PRN (18:45)
[2021-06-22] MEDS ORDERED: ACETAMINOPHEN TAB 650MG DOSE (2X325MG) PO PRN (18:45)
[2021-06-22] MEDS ORDERED: CYAN2500 SL (19:40)
[2021-06-22] MEDS ORDERED: ROSU10TA6 PO (19:40)
[2021-06-22] MEDS ORDERED: D31000TA2 PO (19:40)
[2021-06-22] MEDS ORDERED: LEVO112T2 PO (19:40)
[2021-06-22] MEDS ORDERED: CO Q400C2 PO (19:40)
[2021-06-22] MEDS ORDERED: FLOM0.4C39 PO (19:40)
[2021-06-22] MEDS ORDERED: DOFE250C PO (19:40)
[2021-06-22] MEDS ORDERED: HOME MED LIST COMPLETE! XX SCH (19:45)
[2021-06-22] MEDS: LATANOPROST 0.005% OPHTH SOLN 2.5 ML OU SCH (21:00)
[2021-06-22] MEDS: DOCUSATE SODIUM 100MG CAPSULE PO SCH (21:38)
[2021-06-22] MEDS: ROSUVASTATIN 10 MG TAB (CRESTOR) PO SCH (21:38)
[2021-06-22] MEDS: DOFETILIDE 250 MG PO SCH (22:43)
[2021-06-23] MEDS: NS 1,000 ML IV SCH (03:03)
[2021-06-23] MEDS ORDERED: MORPHINE 2 MG/ML 1ML VIAL (J2270) As Ordered ONE (03:07)
[2021-06-23] MEDS: MORPHINE 2 MG/ML 1ML VIAL (J2270) IV PRN ×2 (03:13→08:42)
[2021-06-23] MEDS: LEVOTHYROXINE 112MCG TABLET (0.112MG) PO SCH (05:45)
[2021-06-23 06:00] VITALS: BP 160/87
[2021-06-23 06:54] LABS: BASO % 0.5 % (0.0-1.0); EOS # 0.2 10^3/uL (0.0-0.5); EOS % 2.7 % (0.0-3.0); HEMATOCRIT 49.3 % (42.0-52.0); LYMPH # 1.1 10^3/uL (1.5-5.0); LYMPH % 14.5 % (24.0-44.0); MEAN CORPUSCULAR HEMOGLOBIN 30.5 pg (27.0-33.0); MEAN CORPUSCULAR HGB CONC 32.5 g/dl (32.0-36.5); MEAN CORPUSCULAR VOLUME 93.9 fl (80.0-96.0); NEUTROPHILS # 5.1 10^3/uL (1.5-8.5); NEUTROPHILS % 68.9 % (36.0-66.0); PLATELET COUNT, AUTOMATED 167 10^3/uL (150-450); RED BLOOD COUNT 5.25 10^6/uL (4.30-6.10); WHITE BLOOD COUNT 7.3 10^3/uL (4.0-10.0)
[2021-06-23 07:26] LABS: ALBUMIN 3.2 GM/DL (3.2-5.2); ALT/SGPT 23 U/L (12-78); BILIRUBIN,TOTAL 0.7 MG/DL (0.2-1.0); BLOOD UREA NITROGEN 17 MG/DL (7-18); CALCIUM LEVEL 8.9 MG/DL (8.8-10.2); CARBON DIOXIDE LEVEL 28 MEQ/L (21-32); CHLORIDE LEVEL 106 MEQ/L (98-107); CREATININE FOR GFR 0.85 MG/DL (0.70-1.30); GLOMERULAR FILTRATION RATE > 60.0 (>42); GLUCOSE, FASTING 93 MG/DL (70-100); MAGNESIUM LEVEL 2.5 MG/DL (1.8-2.4); SODIUM LEVEL 139 MEQ/L (136-145); TOTAL PROTEIN 7.2 GM/DL (6.4-8.2)
[2021-06-23] MEDS: DOFETILIDE 250 MG PO SCH (08:38)
[2021-06-23] MEDS: amLODIPine 5 MG TAB PO SCH (08:38)
[2021-06-23] MEDS: TIMOLOL XE GFS 0.5% OPHTH 5 ML OU SCH (08:42)
[2021-06-23] MEDS: VITAMIN D 1,000 INTERNATIONAL UNITS TABLET PO SCH (09:00)
[2021-06-23] MEDS: OMEGA-3 1000MG CAPSULE PO SCH (09:00)
[2021-06-23] MEDS: DOCUSATE SODIUM 100MG CAPSULE PO SCH (09:00)
[2021-06-23] MEDS: TAMSULOSIN 0.4 MG CAP PO SCH (09:00)
[2021-06-23 11:12] VITALS: BP 163/90
[2021-06-23] MEDS ORDERED: TRANEXAMIC ACID 100 MG/ML 10ML VIAL As Ordered ONE (13:55)
[2021-06-23] MEDS ORDERED: fentaNYL 250 MCG/5 ML INJECTION As Ordered ONE (13:57)
[2021-06-23] MEDS ORDERED: ROCURONIUM BROMIDE 50 MG/5 ML VIAL As Ordered ONE (13:59)
[2021-06-23] MEDS ORDERED: LIDOCAINE 2% 100MG/5ML SDV (FOR ANES.) As Ordered ONE (13:59)
[2021-06-23] MEDS ORDERED: SUGAMMADEX SODIUM 500 MG/5 ML VIAL (BRIDION) As Ordered ONE (13:59)
[2021-06-23] MEDS ORDERED: propofoL 200 MG/20 ML VIAL As Ordered ONE (13:59)
[2021-06-23 14:00] VITALS: BP 163/90
[2021-06-23] MEDS ORDERED: METOCLOPRAMIDE INJ 10MG/2ML VIAL (J2765 PER 1) As Ordered ONE (14:01)
[2021-06-23] MEDS ORDERED: ONDANSETRON 4MG/2ML VIAL As Ordered ONE (14:01)
[2021-06-23] MEDS ORDERED: dexameTHASONE 4 MG/ML 1ML VIAL (J1100 PER 1MG) As Ordered ONE (14:01)
[2021-06-23] MEDS ORDERED: DESFLURANE 240 ML INHALANT As Ordered ONE (14:06)
[2021-06-23] MEDS ORDERED: SEVOFLURANE INHAL SOLN 250 ML BTL As Ordered ONE (14:07)
[2021-06-23] MEDS ORDERED: MIDAZOLAM INJ 2MG/2ML VIAL (J2250 PER 1MG) As Ordered ONE (14:22)
[2021-06-23] MEDS ORDERED: PHENYLephrine 500MCG 5ML (100MCG/ML) SYRINGE As Ordered ONE (15:18)
[2021-06-23] MEDS ORDERED: ceFAZolin 2 GM/D5W 50 ML IV BAG (J0690 PER 500MG) As Ordered ONE (15:20)
[2021-06-23] MEDS ORDERED: PHENYLEPHRINE 10MG/ML 1ML VIAL (J2370 PER 1) As Ordered ONE (15:30)
[2021-06-23] MEDS ORDERED: ROPIVA 125MG/EPINEPH 0.25MG/CLONID 40MCG/KETOR 15MG IN NS 50ML SYRINGE PA ONE (16:00)
[2021-06-23] MEDS ORDERED: SENNA 8.6 MG TAB (SENOKOT) PO PRN (18:20)
[2021-06-23] MEDS ORDERED: traMADol 50 MG TAB PO PRN (18:20)
[2021-06-23] MEDS ORDERED: ONDANSETRON 4MG/2ML VIAL IV PRN (18:20)
[2021-06-23] MEDS ORDERED: oxyCODONE 5MG TAB PO PRN ×2 (18:20)
[2021-06-23] MEDS ORDERED: LR 1,000 ML IV SCH (18:25)
[2021-06-23 18:30] VITALS: BP 139/76
[2021-06-23 18:55] VITALS: BP 126/72
[2021-06-23 20:00] VITALS: BP 120/69
[2021-06-23] MEDS: ACETAMINOPHEN TAB 650MG DOSE (2X325MG) PO SCH (23:59)
[2021-06-24] MEDS: ceFAZolin SOD 2 GM in IV 1 EA IV SCH ×2 (00:02→08:00)
[2021-06-24] MEDS: LEVOTHYROXINE 112MCG TABLET (0.112MG) PO SCH (05:16)
[2021-06-24] MEDS: ACETAMINOPHEN TAB 650MG DOSE (2X325MG) PO SCH ×4 (05:16→22:24)
[2021-06-24 06:17] LABS: BASO % 0.2 % (0.0-1.0); EOS % 0.3 % (0.0-3.0); HEMATOCRIT 42.7 % (42.0-52.0); LYMPH # 0.9 10^3/uL (1.5-5.0); LYMPH % 9.1 % (24.0-44.0); MEAN CORPUSCULAR HEMOGLOBIN 30.1 pg (27.0-33.0); MEAN CORPUSCULAR HGB CONC 32.1 g/dl (32.0-36.5); MEAN CORPUSCULAR VOLUME 93.8 fl (80.0-96.0); MONO # 1.4 10^3/uL (0.0-0.8); MONO % 14.5 % (2.0-8.0); NEUTROPHILS % 75.4 % (36.0-66.0); PLATELET COUNT, AUTOMATED 165 10^3/uL (150-450); RED BLOOD COUNT 4.55 10^6/uL (4.30-6.10); WHITE BLOOD COUNT 9.4 10^3/uL (4.0-10.0)
[2021-06-24 06:25] LABS: HEMOGLOBIN 13.7 g/dl (13.5-17.5)
[2021-06-24 06:41] LABS: ALBUMIN 2.7 GM/DL (3.2-5.2); BILIRUBIN,TOTAL 0.6 MG/DL (0.2-1.0); CALCIUM LEVEL 8.4 MG/DL (8.8-10.2); CREATININE FOR GFR 1.42 MG/DL (0.70-1.30); GLOMERULAR FILTRATION RATE 51.3 (>42); MAGNESIUM LEVEL 2.3 MG/DL (1.8-2.4); POTASSIUM SERUM 4.4 MEQ/L (3.5-5.1); TOTAL PROTEIN 5.8 GM/DL (6.4-8.2)
[2021-06-24] MEDS: NS 1,000 ML IV SCH ×2 (08:00→17:24)
[2021-06-24] MEDS: TAMSULOSIN 0.4 MG CAP PO SCH (08:03)
[2021-06-24] MEDS: VITAMIN D 1,000 INTERNATIONAL UNITS TABLET PO SCH (08:03)
[2021-06-24] MEDS: DOFETILIDE 250 MG PO SCH ×3 (08:03→22:25)
[2021-06-24] MEDS: OMEGA-3 1000MG CAPSULE PO SCH (08:03)
[2021-06-24] MEDS: FERROUS SULFATE 325MG TAB PO SCH (08:03)
[2021-06-24] MEDS: DOCUSATE SODIUM 100MG CAPSULE PO SCH ×3 (08:03→22:25)
[2021-06-24] MEDS: ASCORBIC ACID 500 MG TAB PO SCH (08:03)
[2021-06-24] MEDS: amLODIPine 5 MG TAB PO SCH (08:04)
[2021-06-24] MEDS: TIMOLOL XE GFS 0.5% OPHTH 5 ML OU SCH (08:08)
[2021-06-24] MEDS ORDERED: NAPROXEN 250 MG TAB PO SCH (09:00)
[2021-06-24] MEDS: POLYVINYL ALCOHOL OPHTH SOLN 15 ML(LIQUITEARS) OU PRN ×3 (09:40→15:30)
[2021-06-24 15:15] VITALS: BP 126/68
[2021-06-24 22:00] VITALS: BP 128/68
[2021-06-24] MEDS: ROSUVASTATIN 10 MG TAB (CRESTOR) PO SCH ×2 (22:24)
[2021-06-24] MEDS: APIXABAN 5 MG TAB (ELIQUIS) PO SCH (22:24)
[2021-06-24] MEDS: LATANOPROST 0.005% OPHTH SOLN 2.5 ML OU SCH ×2 (22:25)
[2021-06-25 01:43] VITALS: O2SAT 94
[2021-06-25] MEDS: LEVOTHYROXINE 112MCG TABLET (0.112MG) PO SCH (04:14)
[2021-06-25] MEDS: NS 1,000 ML IV SCH (04:15)
[2021-06-25] MEDS: ACETAMINOPHEN TAB 650MG DOSE (2X325MG) PO SCH ×4 (04:15→23:39)
[2021-06-25 06:00] VITALS: BP 168/88
[2021-06-25 07:46] LABS: BASO % 0.5 % (0.0-1.0); EOS # 0.6 10^3/uL (0.0-0.5); EOS % 7.2 % (0.0-3.0); HEMATOCRIT 44.6 % (42.0-52.0); HEMOGLOBIN 14.4 g/dl (13.5-17.5); LYMPH # 1.1 10^3/uL (1.5-5.0); LYMPH % 14.4 % (24.0-44.0); MEAN CORPUSCULAR HEMOGLOBIN 30.1 pg (27.0-33.0); MEAN CORPUSCULAR HGB CONC 32.3 g/dl (32.0-36.5); MEAN CORPUSCULAR VOLUME 93.3 fl (80.0-96.0); MONO # 1.1 10^3/uL (0.0-0.8); MONO % 14.3 % (2.0-8.0); NEUTROPHILS # 4.9 10^3/uL (1.5-8.5); NEUTROPHILS % 63.2 % (36.0-66.0); PLATELET COUNT, AUTOMATED 157 10^3/uL (150-450); RED BLOOD COUNT 4.78 10^6/uL (4.30-6.10); WHITE BLOOD COUNT 7.7 10^3/uL (4.0-10.0)
[2021-06-25 08:17] LABS: ALBUMIN 2.9 GM/DL (3.2-5.2); ALT/SGPT 14 U/L (12-78); BILIRUBIN,TOTAL 0.8 MG/DL (0.2-1.0); BLOOD UREA NITROGEN 17 MG/DL (7-18); CALCIUM LEVEL 8.6 MG/DL (8.8-10.2); CARBON DIOXIDE LEVEL 30 MEQ/L (21-32); CHLORIDE LEVEL 107 MEQ/L (98-107); CREATININE FOR GFR 0.75 MG/DL (0.70-1.30); GLOMERULAR FILTRATION RATE > 60.0 (>42); GLUCOSE, FASTING 104 MG/DL (70-100); MAGNESIUM LEVEL 2.3 MG/DL (1.8-2.4); SODIUM LEVEL 141 MEQ/L (136-145); TOTAL PROTEIN 6.2 GM/DL (6.4-8.2)
[2021-06-25] MEDS: FERROUS SULFATE 325MG TAB PO SCH (09:20)
[2021-06-25] MEDS: DOCUSATE SODIUM 100MG CAPSULE PO SCH ×2 (09:20→20:23)
[2021-06-25] MEDS: APIXABAN 5 MG TAB (ELIQUIS) PO SCH ×2 (09:20→20:23)
[2021-06-25] MEDS: ASCORBIC ACID 500 MG TAB PO SCH (09:20)
[2021-06-25] MEDS: TAMSULOSIN 0.4 MG CAP PO SCH (09:20)
[2021-06-25] MEDS: VITAMIN D 1,000 INTERNATIONAL UNITS TABLET PO SCH (09:20)
[2021-06-25] MEDS: DOFETILIDE 250 MG PO SCH ×2 (09:21→20:23)
[2021-06-25] MEDS: amLODIPine 5 MG TAB PO SCH (09:21)
[2021-06-25] MEDS: OMEGA-3 1000MG CAPSULE PO SCH (09:21)
[2021-06-25] MEDS: TIMOLOL XE GFS 0.5% OPHTH 5 ML OU SCH (09:22)
[2021-06-25 09:30] VITALS: O2SAT 93
[2021-06-25] MEDS ORDERED: MORPHINE 2 MG/ML 1ML VIAL (J2270) IV PRN (11:00)
[2021-06-25] MEDS ORDERED: oxyCODONE 5MG TAB PO PRN (11:00)
[2021-06-25 14:00] VITALS: BP 125/66
[2021-06-25] MEDS: POLYVINYL ALCOHOL OPHTH SOLN 15 ML(LIQUITEARS) OU PRN (18:02)
[2021-06-25] MEDS: ROSUVASTATIN 10 MG TAB (CRESTOR) PO SCH (20:23)
[2021-06-25] MEDS: LATANOPROST 0.005% OPHTH SOLN 2.5 ML OU SCH (20:23)
[2021-06-25 21:00] VITALS: O2SAT 93
[2021-06-26 06:00] VITALS: BP 156/64
[2021-06-26] MEDS: LEVOTHYROXINE 112MCG TABLET (0.112MG) PO SCH (06:21)
[2021-06-26] MEDS: ACETAMINOPHEN TAB 650MG DOSE (2X325MG) PO SCH ×2 (06:21→12:02)
[2021-06-26 08:01] LABS: BASO # 0.1 10^3/uL (0.0-0.2); BASO % 0.7 % (0.0-1.0); EOS # 0.6 10^3/uL (0.0-0.5); HEMATOCRIT 41.8 % (42.0-52.0); HEMOGLOBIN 13.7 g/dl (13.5-17.5); LYMPH % 13.9 % (24.0-44.0); MEAN CORPUSCULAR HEMOGLOBIN 30.4 pg (27.0-33.0); MEAN CORPUSCULAR HGB CONC 32.8 g/dl (32.0-36.5); MEAN CORPUSCULAR VOLUME 92.9 fl (80.0-96.0); MONO # 0.9 10^3/uL (0.0-0.8); MONO % 13.2 % (2.0-8.0); NEUTROPHILS # 4.4 10^3/uL (1.5-8.5); NEUTROPHILS % 63.6 % (36.0-66.0); PLATELET COUNT, AUTOMATED 172 10^3/uL (150-450); WHITE BLOOD COUNT 6.8 10^3/uL (4.0-10.0)
[2021-06-26] MEDS: DOFETILIDE 250 MG PO SCH (09:13)
[2021-06-26] MEDS: OMEGA-3 1000MG CAPSULE PO SCH (09:13)
[2021-06-26] MEDS: ASCORBIC ACID 500 MG TAB PO SCH (09:13)
[2021-06-26] MEDS: DOCUSATE SODIUM 100MG CAPSULE PO SCH (09:13)
[2021-06-26] MEDS: VITAMIN D 1,000 INTERNATIONAL UNITS TABLET PO SCH (09:14)
[2021-06-26] MEDS: FERROUS SULFATE 325MG TAB PO SCH (09:14)
[2021-06-26] MEDS: APIXABAN 5 MG TAB (ELIQUIS) PO SCH (09:14)
[2021-06-26 09:16] VITALS: BP 152/79
[2021-06-26] MEDS: TAMSULOSIN 0.4 MG CAP PO SCH (09:16)
[2021-06-26] MEDS: amLODIPine 5 MG TAB PO SCH (09:16)
[2021-06-26] MEDS: TIMOLOL XE GFS 0.5% OPHTH 5 ML OU SCH (09:18)
[2021-06-26 09:42] LABS: ALBUMIN 2.7 GM/DL (3.2-5.2); ALT/SGPT 13 U/L (12-78); BILIRUBIN,TOTAL 0.7 MG/DL (0.2-1.0); BLOOD UREA NITROGEN 13 MG/DL (7-18); CALCIUM LEVEL 8.5 MG/DL (8.8-10.2); CARBON DIOXIDE LEVEL 31 MEQ/L (21-32); CHLORIDE LEVEL 107 MEQ/L (98-107); CREATININE FOR GFR 0.68 MG/DL (0.70-1.30); GLOMERULAR FILTRATION RATE > 60.0 (>42); GLUCOSE, FASTING 106 MG/DL (70-100); MAGNESIUM LEVEL 2.2 MG/DL (1.8-2.4); POTASSIUM SERUM 3.6 MEQ/L (3.5-5.1); SODIUM LEVEL 140 MEQ/L (136-145); TOTAL PROTEIN 6.4 GM/DL (6.4-8.2)
[2021-06-26] MEDS ORDERED: OXYC-517 PO (10:16)
== END 2021-06-26 14:45 | disposition home health service (06) | DRG 522 ==
LOC: EDBD 16:10 → M ED 16:10 → M ED INP 18:43 → M MS5PR 06-23 00:50
PROVIDERS: ADMIT Internal Medicine; ATTEND Internal Medicine
PROC: 0SRB0J9 Replacement of Left Hip Joint with Synthetic Substitute, Cemented, Open Approach (ICD-10-PCS; principal; 2021-06-23 14:00)
DX: S72.002A Fracture of unspecified part of neck of left femur, initial encounter for closed fracture (principal); J98.11 Atelectasis; N17.9 Acute kidney failure, unspecified; G83.81 Brown-Sequard syndrome; E03.9 Hypothyroidism, unspecified; I25.10 Atherosclerotic heart disease of native coronary artery without angina pectoris; Z95.1 Presence of aortocoronary bypass graft; I10 Essential (primary) hypertension; I48.91 Unspecified atrial fibrillation; Z79.01 Long term (current) use of anticoagulants; W18.30XA Fall on same level, unspecified, initial encounter; Y92.009 Unspecified place in unspecified non-institutional (private) residence as the place of occurrence of the external cause; Z79.899 Other long term (current) drug therapy

== ENCOUNTER → 2021-07-11 | Outpatient (REF) | payer MEDICARE, OTHER ==
[~2021-07-11] MED LIST changes: +AMIO200T3 PO; -AMIO200T49 PO; +CO Q400C2 PO; +CYAN2500 SL; +D31000TA2 PO; +DOFE250C PO; +LEVO112T2 PO; +OXYC-517 PO; +ROSU10TA6 PO
== END ==
LOC: M LAB REF 16:38
PROVIDERS: ATTEND Nurse Practitioner Adult Health
DX: N39.0 Urinary tract infection, site not specified (principal)

== ENCOUNTER → 2021-07-15 | Outpatient (CLI) | payer MEDICARE, OTHER ==
[~2021-07-15] MED LIST changes: -AMIO200T3 PO; +AMIO200T49 PO
== END ==
LOC: M SOG 08:13
PROVIDERS: ATTEND Orthopaedic Surgery Adult Reconstructive Orthopaedic Surgery
DX: Z47.89 Encounter for other orthopedic aftercare (principal); Z96.642 Presence of left artificial hip joint

== ENCOUNTER 2023-05-02 14:01 | Emergency (ER) | payer MEDICARE, OTHER ==
[~2023-05-02] VITALS: Ht 180.3 cm; Wt 67.3 kg
[~2023-05-02 14:01] MED LIST changes: -ACET1TAB16 PO; +ACET300T48 PO; -CO Q400C2 PO; +CVS400CA10 PO; -D31000TA2 PO; +VITA100093 PO
[2023-05-02 14:02] VITALS: TEMP 98.1
[2023-05-02] MEDS ORDERED: NS 1,000 ML IV SCH (14:40)
[2023-05-02] MEDS ORDERED: LIDOCAINE 2% 5ML JELLY UROJET TOP ONE (15:00)
[2023-05-02 15:54] LABS: BASO % 0.3 % (0.0-1.0); EOS % 0.2 % (0.0-3.0); HEMATOCRIT 50.6 % (42.0-52.0); HEMOGLOBIN 16.9 g/dl (13.5-17.5); LYMPH # 0.8 10^3/uL (1.5-5.0); LYMPH % 8.4 % (24.0-44.0); MEAN CORPUSCULAR HEMOGLOBIN 30.8 pg (27.0-33.0); MEAN CORPUSCULAR HGB CONC 33.4 g/dl (32.0-36.5); MEAN CORPUSCULAR VOLUME 92.3 fl (80.0-96.0); MONO # 0.5 10^3/uL (0.0-0.8); MONO % 5.5 % (2.0-8.0); NEUTROPHILS # 7.6 10^3/uL (1.5-8.5); NEUTROPHILS % 85.3 % (36.0-66.0); PLATELET COUNT, AUTOMATED 182 10^3/uL (150-450); RED BLOOD COUNT 5.48 10^6/uL (4.30-6.10); WHITE BLOOD COUNT 8.9 10^3/uL (4.0-10.0)
[2023-05-02 16:34] LABS: LIPASE 31 U/L (12-53)
[2023-05-02 17:03] LABS: ALBUMIN 4.3 G/DL (3.2-5.2); ALKALINE PHOSPHATASE 58 U/L (46-116); ALT/SGPT 24 U/L (7.0-40); AST/SGOT 52 U/L (<34); BILIRUBIN,DIRECT 0.3 MG/DL (<0.4); BILIRUBIN,TOTAL 1.4 MG/DL (0.3-1.2); BLOOD UREA NITROGEN 27 MG/DL (9-23); CALCIUM LEVEL 10.4 MG/DL (8.3-10.6); CARBON DIOXIDE LEVEL 28 MMOL/L (20-31); CHLORIDE LEVEL 100 MMOL/L (98-107); CREATININE FOR GFR 1.18 MG/DL (0.70-1.30); GLOMERULAR FILTRATION RATE > 60.0 (>35); GLUCOSE, FASTING 137 MG/DL (74-106); POTASSIUM SERUM 4.9 MMOL/L (3.5-5.1); SODIUM LEVEL 137 MMOL/L (136-145); TOTAL PROTEIN 7.7 G/DL (5.7-8.2)
[2023-05-02 17:31] VITALS: O2SAT 93
[2023-05-02 17:43] VITALS: BP 151/81
== END 2023-05-02 18:02 | disposition home or self-care (01) ==
LOC: M ED 14:01
DX: N39.0 Urinary tract infection, site not specified (principal); R33.9 Retention of urine, unspecified; I49.3 Ventricular premature depolarization; I45.81 Long QT syndrome; I10 Essential (primary) hypertension; E78.5 Hyperlipidemia, unspecified; Z79.01 Long term (current) use of anticoagulants; Z79.1 Long term (current) use of non-steroidal anti-inflammatories (NSAID); Z79.810 Long term (current) use of selective estrogen receptor modulators (SERMs); Z79.899 Other long term (current) drug therapy

== ENCOUNTER → 2023-08-09 | Outpatient (CLI) | payer MEDICARE, OTHER ==
[2023-08-09 13:22] LABS: HEMATOCRIT 44.1 % (42.0-52.0); HEMOGLOBIN 14.3 g/dl (13.5-17.5); MEAN CORPUSCULAR HEMOGLOBIN 30.8 pg (27.0-33.0); MEAN CORPUSCULAR HGB CONC 32.4 g/dl (32.0-36.5); PLATELET COUNT, AUTOMATED 168 10^3/uL (150-450); RED BLOOD COUNT 4.64 10^6/uL (4.30-6.10); WHITE BLOOD COUNT 5.3 10^3/uL (4.0-10.0)
[2023-08-09 13:32] LABS: INR 1.33; PROTHROMBIN TIME 16.1 SECONDS (12.5-14.5)
[2023-08-09 13:43] LABS: BLOOD UREA NITROGEN 19 MG/DL (9-23); CALCIUM LEVEL 9.3 MG/DL (8.3-10.6); CARBON DIOXIDE LEVEL 32 MMOL/L (20-31); CHLORIDE LEVEL 106 MMOL/L (98-107); CREATININE FOR GFR 0.85 MG/DL (0.70-1.30); GLOMERULAR FILTRATION RATE > 60.0 (>35); GLUCOSE, FASTING 86 MG/DL (74-106); POTASSIUM SERUM 4.2 MMOL/L (3.5-5.1); SODIUM LEVEL 139 MMOL/L (136-145)
== END ==
LOC: M PLALAB 11:26
PROVIDERS: ATTEND Urology
DX: Z01.818 Encounter for other preprocedural examination (principal); N40.1 Benign prostatic hyperplasia with lower urinary tract symptoms; Z79.01 Long term (current) use of anticoagulants

== ENCOUNTER → 2023-08-23 | Outpatient (REF) | payer MEDICARE, OTHER ==
[~2023-08-23] MED LIST changes: +CYCL1DRO10 OU; +DORZ2SOL5 OU; +LEVO100T5 PO; +OMEGA Q PO
== END ==
LOC: M SMT 12:53
PROVIDERS: ATTEND Urology
DX: Z01.818 Encounter for other preprocedural examination (principal); N40.1 Benign prostatic hyperplasia with lower urinary tract symptoms; N39.0 Urinary tract infection, site not specified

== ENCOUNTER 2023-08-31 11:06 | Day surgery (SDC) | payer MEDICARE, OTHER ==
[~2023-08-31] VITALS: Ht 180.3 cm; Wt 67.1 kg
[~2023-08-31 11:06] MED LIST changes: +LR 1,000 ML IV SCH; +ONDANSETRON 4MG 2ML VIAL IV PRN; +ceFAZolin SOD 2 GM in IV 1 EA IV ONE; +oxyCODONE 5MG TAB PO PRN
[2023-08-31] MEDS: LR 1,000 ML IV SCH (11:32)
[2023-08-31] MEDS ORDERED: AMOX500C PO (11:32)
[2023-08-31] MEDS ORDERED: fentaNYL 100 MCG/2 ML INJECTION As Ordered ONE (12:39)
[2023-08-31] MEDS ORDERED: ACETAMINOPHEN 1000MG 100ML IV BAG As Ordered ONE (12:39)
[2023-08-31] MEDS ORDERED: propofoL 200 MG/20 ML VIAL As Ordered ONE (12:40)
[2023-08-31] MEDS ORDERED: ONDANSETRON 4MG 2ML VIAL As Ordered ONE (12:40)
[2023-08-31] MEDS ORDERED: SUGAMMADEX SODIUM 500 MG/5 ML VIAL (BRIDION) As Ordered ONE (12:40)
[2023-08-31] MEDS ORDERED: ROCURONIUM BROMIDE 50MG/5ML VIAL As Ordered ONE (12:40)
[2023-08-31] MEDS ORDERED: LIDOCAINE 2% 100MG/5ML SDV (FOR ANES.) As Ordered ONE (12:41)
[2023-08-31] MEDS: VANCOMYCIN 1000MG/20ML VIAL As Ordered ONE (13:45)
[2023-08-31] MEDS: GENTAMICIN SULF 80MG/2ML VIAL As Ordered ONE (14:15)
[2023-08-31] MEDS ORDERED: LR 1,000 ML IV SCH (15:15)
[2023-08-31] MEDS ORDERED: ONDANSETRON 4MG 2ML VIAL IV PRN (15:15)
[2023-08-31] MEDS ORDERED: fentaNYL 100 MCG/2 ML INJECTION IV PRN (15:15)
[2023-08-31 16:15] VITALS: BP 151/76; TEMP 99; O2SAT 94
[2023-08-31] MEDS ORDERED: ACETAMINOPHEN TAB 650MG DOSE (2X325MG) PO PRN (17:05)
== END 2023-08-31 16:50 | disposition home or self-care (01) ==
LOC: M SDC 11:06
PROVIDERS: ATTEND Urology
DX: N40.1 Benign prostatic hyperplasia with lower urinary tract symptoms (principal); R33.8 Other retention of urine; I25.10 Atherosclerotic heart disease of native coronary artery without angina pectoris; I48.91 Unspecified atrial fibrillation; I10 Essential (primary) hypertension; E03.9 Hypothyroidism, unspecified; Z79.899 Other long term (current) drug therapy; Z79.01 Long term (current) use of anticoagulants; E78.00 Pure hypercholesterolemia, unspecified; Z79.890 Hormone replacement therapy; Z95.1 Presence of aortocoronary bypass graft; Z88.1 Allergy status to other antibiotic agents; Z87.891 Personal history of nicotine dependence; Z90.49 Acquired absence of other specified parts of digestive tract
CPT/HCPCS: 52648; J0131; J1100; J1580; J2405; J3010; J3370

== ENCOUNTER → 2023-11-21 | Outpatient (CLI) | payer MEDICARE, OTHER ==
[~2023-11-21] MED LIST changes: +AMOX500C PO; -LR 1,000 ML IV SCH; -ONDANSETRON 4MG 2ML VIAL IV PRN; -ROSU10TA6 PO; +ROSU10TA61 PO; +ROSU5TAB40 PO; -ROSU5TAB5 PO; -ceFAZolin SOD 2 GM in IV 1 EA IV ONE; -oxyCODONE 5MG TAB PO PRN
[2023-11-21 17:14] LABS: BASO # 0.1 10^3/uL (0.0-0.2); BASO % 1.1 % (0.0-1.0); EOS # 0.6 10^3/uL (0.0-0.5); EOS % 12.9 % (0.0-3.0); HEMATOCRIT 47.9 % (42.0-52.0); HEMOGLOBIN 15.4 g/dl (13.5-17.5); LYMPH # 1.3 10^3/uL (1.5-5.0); MEAN CORPUSCULAR HEMOGLOBIN 29.7 pg (27.0-33.0); MEAN CORPUSCULAR HGB CONC 32.2 g/dl (32.0-36.5); MEAN CORPUSCULAR VOLUME 92.5 fl (80.0-96.0); MONO # 0.6 10^3/uL (0.0-0.8); MONO % 12.9 % (2.0-8.0); PLATELET COUNT, AUTOMATED 147 10^3/uL (150-450); RED BLOOD COUNT 5.18 10^6/uL (4.30-6.10); WHITE BLOOD COUNT 4.5 10^3/uL (4.0-10.0)
[2023-11-21 17:17] LABS: HEMOGLOBIN A1c 5.3 % (4.0-6.0)
[2023-11-21 17:18] LABS: INR 1.31; PROTHROMBIN TIME 15.9 SECONDS (12.5-14.5)
[2023-11-21 17:27] LABS: ERYTHROCYTE SEDIMENTATION RATE 22 mm/hr (0-20)
[2023-11-21 17:35] LABS: CHOLESTEROL LEVEL 172 MG/DL (<200); CHOLESTEROL RISK RATIO 2.36 (<5); GLUCOSE,RANDOM 88 MG/DL (LESS THAN 200); HDL CHOLESTEROL 72.6 MG/DL (>40); LDL CHOLESTEROL 88.2 MG/DL (<100); NON-HDL-C 99.4 MG/DL; TRIGLYCERIDES LEVEL 56 MG/DL (<150)
== END ==
LOC: M PLALAB 15:14
PROVIDERS: ATTEND Physician Assistant
DX: H40.1132 Primary open-angle glaucoma, bilateral, moderate stage (principal); Z79.01 Long term (current) use of anticoagulants; E78.00 Pure hypercholesterolemia, unspecified

== ENCOUNTER → 2023-12-18 | Outpatient (CLI) | payer MEDICARE, OTHER | LOC: M RAD 11:46 | PROVIDERS: ATTEND Physician Assistant | DX: H34.8120 Central retinal vein occlusion, left eye, with macular edema (principal) ==

== ENCOUNTER → 2023-12-27 | Outpatient (CLI) | payer MEDICARE, OTHER ==
[2023-12-27 15:44] LABS: BASO # 0.1 10^3/uL (0.0-0.2); BASO % 1.1 % (0.0-1.0); EOS # 0.6 10^3/uL (0.0-0.5); EOS % 10.5 % (0.0-3.0); HEMATOCRIT 45.6 % (42.0-52.0); HEMOGLOBIN 14.9 g/dl (13.5-17.5); LYMPH # 1.4 10^3/uL (1.5-5.0); LYMPH % 25.5 % (24.0-44.0); MEAN CORPUSCULAR HEMOGLOBIN 30.2 pg (27.0-33.0); MEAN CORPUSCULAR HGB CONC 32.7 g/dl (32.0-36.5); MEAN CORPUSCULAR VOLUME 92.5 fl (80.0-96.0); MONO # 0.7 10^3/uL (0.0-0.8); NEUTROPHILS # 2.8 10^3/uL (1.5-8.5); NEUTROPHILS % 50.4 % (36.0-66.0); PLATELET COUNT, AUTOMATED 180 10^3/uL (150-450); RED BLOOD COUNT 4.93 10^6/uL (4.30-6.10); WHITE BLOOD COUNT 5.6 10^3/uL (4.0-10.0)
[2023-12-27 16:16] LABS: ALBUMIN 3.5 G/DL (3.2-5.2); ALKALINE PHOSPHATASE 66 U/L (46-116); ALT/SGPT 17 U/L (7.0-40); AST/SGOT 14 U/L (<34); BILIRUBIN,TOTAL 0.8 MG/DL (0.3-1.2); BLOOD UREA NITROGEN 15 MG/DL (9-23); CALCIUM LEVEL 9.7 MG/DL (8.3-10.6); CARBON DIOXIDE LEVEL 30 MMOL/L (20-31); CHLORIDE LEVEL 104 MMOL/L (98-107); CREATININE FOR GFR 0.82 MG/DL (0.70-1.30); GLOMERULAR FILTRATION RATE > 60.0 (>35); GLUCOSE, FASTING 104 MG/DL (74-106); SODIUM LEVEL 139 MMOL/L (136-145); TOTAL PROTEIN 6.6 G/DL (5.7-8.2)
[2023-12-28 13:07] LABS: PROTEIN CREATININE RATIO 225 mg/g creat (25-148); T PROTEIN CREATININE RATIO 0.225 (0.025-0.148); UPEP CREATININE 111 mg/dL (20-320); UPEP TOTAL PROTEIN 25 mg/dL (5-25)
[2023-12-30 00:32] LABS: T P ELECTROPHORESIS SO 6.7 g/dL (6.1-8.1)
== END ==
LOC: M PLALAB 13:27
PROVIDERS: ATTEND Physician Assistant
DX: H34.8192 Central retinal vein occlusion, unspecified eye, stable (principal)